=== PATIENT | male | born 1950 | race Caucasian/White ===

== ENCOUNTER → 2016-12-08 | Outpatient (CLI) | payer BC ==
[~2016-12-08] MED LIST: ASPEC81 PO; CIPR-255 PO; CLC100 PO; DTR5 PO; DUTA0.5C PO; LPR25 PO; METO25TA56 PO; MISCTAB29 PO; NAPR1TAB9 PO; ONDA4TAB65 PO; OXYC7.5T62 PO; ROSU20TA PO; SELE200C3 PO; VITA400C3 PO
[2016-12-08 10:57] LABS: BASO % 0.2 %; BASO ABS # 0.01 K/uL (0-0.2); COMPLETE YES; EOS % 0.7 %; HEMATOCRIT 44.4 % (42-52); LYMPH % 21.3 %; MEAN CELL VOLUME 85.5 fL (80-100); MEAN CORPUSCULAR HEMOGLOBIN 28.5 pg (25-34); MEAN CORPUSCULAR HGB CONC 33.3 g/dl (32-36); MEAN PLATELET VOLUME 10.2 fL (7.4-10.4); MONO % 6.7 %; NEUT % 71.1 %; PLATELET COUNT 347 K/uL (130-400); RED BLOOD COUNT 5.19 M/uL (4.7-6.1); WHITE BLOOD COUNT 5.63 K/uL (4.8-10.8)
[2016-12-08 11:18] LABS: BLOOD UREA NITROGEN 22 mg/dl (7-18); BUN/CREATININE RATIO 16.7 (10-20); CALCIUM 9.2 mg/dl (8.5-10.1); CARBON DIOXIDE 25 mmol/L (21-32); CHLORIDE 107 mmol/L (98-107); CHOLESTEROL 210 mg/dl (0-200); GLUCOSE 96 mg/dl (70-99); POTASSIUM 4.5 mmol/L (3.5-5.1); SODIUM 141 mmol/L (136-145); TRIGLYCERIDES 86 mg/dl (0-150); VERY LOW DENSITY LIPOPROT CALC 17 mg/dl
[2016-12-08 11:25] LABS: ALB/GLOB RATIO 0.9 (0.9-2); ALKALINE PHOSPHATASE 87 U/L (45-117); ALT/SGPT 22 U/L (12-78); AST/SGOT 16 U/L (15-37); CHOLESTEROL/HDL RATIO 3.2; HDL CHOLESTEROL 66 mg/dl; LDL CHOLESTEROL CALCULATED 127 mg/dl
[2016-12-08 16:36] LABS: LYME DISEASE AB IGG NEG (NEG); LYME DISEASE AB IGM NEG (NEG)
== END | disposition home or self-care (01) ==
LOC: C.LABBC 08:58
PROVIDERS: ATTEND Internal Medicine Geriatric Medicine
DX: Z12.5 Encounter for screening for malignant neoplasm of prostate (principal); Z00.00 Encounter for general adult medical examination without abnormal findings; W57.XXXA Bitten or stung by nonvenomous insect and other nonvenomous arthropods, initial encounter; T14.8 Other injury of unspecified body region

== ENCOUNTER → 2017-01-13 | Outpatient (CLI) | payer BC | END | disposition home or self-care (01) | LOC: C.LABBC 10:04 | PROVIDERS: ATTEND Internal Medicine Geriatric Medicine | DX: N41.9 Inflammatory disease of prostate, unspecified (principal) ==

== ENCOUNTER → 2017-02-12 | Outpatient (CLI) | payer BC ==
[2017-02-12 11:12] LABS: BLOOD UREA NITROGEN 21 mg/dl (7-18); BUN/CREATININE RATIO 15.8 (10-20)
== END | disposition home or self-care (01) ==
LOC: C.LABBC 08:08
PROVIDERS: ATTEND Urology
DX: R97.20 Elevated prostate specific antigen [PSA] (principal)

== ENCOUNTER 2017-02-20 18:28 | Emergency (ER) | payer BC ==
[~2017-02-20] VITALS: Ht 170.2 cm; Wt 69.3 kg
[2017-02-20 18:39] VITALS: O2SAT 97
--- NOTE | 2017-02-20 19:01 | EMERGENCY ROOM VISIT NOTE ---
History Report prepared by Divine: Jef Duckworth Under the Supervision of: Dr. Jack Kohli M.D. First contact with patient: 18:50 Chief Complaint: CARDIAC ASSESSMENT Stated Complaint: BACK PAIN, BLACKED OUT History of Present Illness The patient is a 66 year old male who presents to the Emergency Room with complaints of persistent upper back pain that started earlier today. The patient states that the pain radiates to the shoulders and is worse with breathing. The pain was severe. The patient also complains of a headache. The patient was cutting trees with his son earlier today when he had a blackout episode. He last remembers cutting limbs from a tree. The son notes that the patient nearly passed out and was staring blankly into space. His states that he was sweaty at that time. He never had an episode like this before. The patient did not fall and hit his head. He is not on blood thinners. He denies chest pain, leg pain or swelling, weakness, or numbness. He denies history of back problems, cardiac disease, or aortic problems. He does have a family history of heart disease. He is hypertensive. Source of History: patient, family Onset: today Position: back (upper) Symptom Intensity: severe Timing: other (persistent) Modifying Factors (Worsening): breathing Associated Symptoms: + LOC, + diaphoresis, + headache, No SOB, No numbness, No weakness Review of Systems See HPI for pertinent positives & negatives. A total of 10 systems reviewed and were otherwise negative. Past Medical & Surgical Medical Problems: (1) HTN (hypertension) (2) Hypertensive urgency Old medical records were reviewed. Nurse's notes were reviewed and I agree with. Family History FH: heart disease Social History Smoking Status: Never Smoker Housing Status: lives with family Current/Historical Medications Scheduled Misc Natural Products (Osteo Bi-Flex Advanced Tr), 1 TAB PO DAILY Selenium (Selenium), 200 MCG PO DAILY Vitamin E (Vitamin E 400 Iu), 400 INTER.UNIT PO DAILY Allergies Coded Allergies: No Known Allergies (Unverified , 02/20/17) Physical Exam Vital Signs Date Time Temp Pulse Resp B/P Pulse Ox O2 Delivery O2 Flow Rate FiO2 02/20/17 21:32 185/108 02/20/17 21:30 18 02/20/17 21:12 Room Air 02/20/17 21:00 82 16 179/123 02/20/17 20:30 71 17 167/113 02/20/17 20:00 74 15 160/112 02/20/17 19:30 74 18 153/98 02/20/17 19:02 97 02/20/17 19:00 79 22 142/97 02/20/17 18:49 88 02/20/17 18:39 36.6 86 16 177/115 97 Room Air Physical Exam General: Non ill appearing middle aged male in no acute distress, breathing comfortably on room air. Normal speech HEENT: Normal cephalic atraumatic. Pupils are equal round and reactive to light. Extraocular movements are intact. Oropharynx is pink with moist mucous membranes. No swelling of the mouth lips or tongue. Neck: Supple with a midline trachea. No meningeal signs or stiffness, no JVD or bruits. No Stridor. Chest: Clear to auscultation bilaterally. No wheezes or rhonchi. No increased work of breathing. Heart: regular rate and rhythm. Abdomen: Soft nontender, nondistended without rebound guarding or rigidity. Extremities: No cyanosis clubbing or edema. No calf tenderness or assymetry Spine/Back. Mild tenderness over thoracic spine. No CVA tenderness Skin: Good turgor without rashes. Neurologic exam: Cranial nerves two through 12 are intact. Motor and sensation are intact and symmetrical throughout. Medical Decision & Procedures ER Provider Diagnostic Interpretation: Radiology results as stated below per my review and radiologist interpretation: CT ANGIOGRAPHY THE CHEST WITHOUT AND WITH CONTRAST CLINICAL HISTORY: Chest and back pain. Possible dissection. COMPARISON STUDY: No previous studies for comparison. FINDINGS: Unenhanced images were obtained through the chest. The patient was then scanned in a dynamic helical fashion during intravenous administration 118 cc of Optiray 320. MIP imaging was performed. Unenhanced images reveal no evidence of acute aortic hematoma. No thyroid masses are visualized. There is no evidence of thoracic aortic dilatation. There is no evidence of thoracic aortic aneurysm. No pulmonary artery filling defects are visualized. There are no pathologically enlarged axillary, mediastinal, or hilar lymph nodes. No pleural effusions are visualized. There are dependent atelectatic changes. There is no lobar consolidation. There is a 3 mm solid left upper lobe pulmonary nodule as visualized in image #134/326. There is a 3 mm solid pleural-based nodule within the lingula as visualized in image #215/326. IMPRESSION: 1. No evidence of thoracic aortic aneurysm or dissection 2. No evidence of focal pulmonary consolidation 3. No evidence of pneumothorax 4. There are 2 solid left upper lobe pulmonary nodules, each of which measures 3 mm. Please refer to below summary of Fleischner criteria recommendations for follow-up of incidental CT nodules (Rocio Wilhelm, Guidelines for management of small pulmonary nodules detected on CT scans: A statement from the Fleischner Society, Radiology 237: [id number].) SOLID NODULES Solitary nodule size: <6 mm * low risk patients: no follow-up needed * high risk patients: optional CT at 12 months Solitary nodule size: 6-8 mm * low risk patients: follow-up at 6-12 months, then consider further follow-up at 18-24 months * high risk patients: initial follow-up CT at 6-12 months and then at 18-24 months if no change Solitary nodule size: >8 mm * either low or high risk patients - consider follow-up CT at 3 months, and/or CT-PET, and/or biopsy Multiple nodules size: <6 mm * low risk patients: no routine follow-up * high risk patients: optional CT at 12 months Multiple nodules size: 6-8 mm * low risk patients: follow-up at 3-6 months, then consider further follow-up at 18-24 months * high risk patients: follow-up at 3-6 months, then at 18-24 months if no change Multiple nodules size: >8 mm * low risk patients: follow-up at 3-6 months, then consider further follow-up at 18-24 months * high risk patients: follow-up at 3-6 months, then at 18-24 months if no change Note: newly detected indeterminate nodule in persons 35 years of age or older. * low risk patients: minimal or absent history of smoking and/or other known risk factors * high risk patients: history of smoking or of other known risk factors (e.g. first degree relative with lung cancer, or exposure to asbestos, radon, uranium) * if a nodule up to 8 mm is partly solid or is ground glass further follow-up is required after 24 months to exclude possible slow growing adenocarcinoma (RAMA) SUBSOLID NODULES Solitary pure ground-glass nodule * nodule size <6 mm - no CT follow-up required * nodule size >=6 mm - follow-up CT at 6-12 months, then every 2 years until 5 years Solitary part-solid nodule * nodule size <6 mm - no CT follow-up required * nodule size >=6 mm - follow-up CT at 3-6 months. If unchanged, and solid component remains <6 mm, then annual follow-up for 5 years Multiple subsolid nodules * nodule size <6 mm - follow-up CT at 3-6 months, consider further follow-up at 2 and 4 years if stable * nodule size >=6 mm - follow-up CT at 3-6 months, subsequent management based on the most suspicious nodule(s) Electronically signed by: Ritesh Magaña M.D. 02/20/2017 7:40 PM Dictated Date/Time: 02/20/2017 7:33 PM CHEST ONE VIEW PORTABLE CLINICAL HISTORY: Atypical chest pain COMPARISON STUDY: No previous studies for comparison. FINDINGS: The cardiac and mediastinal contours are normal. There is no evidence of focal pulmonary consolidation. There is no evidence of failure. No pleural effusions are visualized.[ IMPRESSION: No active disease in the chest. Electronically signed by: Ritesh Magaña M.D. 02/20/2017 7:44 PM Dictated Date/Time: 02/20/2017 7:44 PM Laboratory Results 02/20/17 18:50 Red Blood Count 4.96, Mean Corpuscular Volume 86.1, Mean Corpuscular Hemoglobin 28.6, Mean Corpuscular Hemoglobin Concent 33.3, Mean Platelet Volume 9.8, Neutrophils (%) (Auto) 80.5, Lymphocytes (%) (Auto) 12.5, Monocytes (%) (Auto) 6.3, Eosinophils (%) (Auto) 0.3, Basophils (%) (Auto) 0.2, Neutrophils # (Auto) 7.26, Lymphocytes # (Auto) 1.13, Monocytes # (Auto) 0.57, Eosinophils # (Auto) 0.03, Basophils # (Auto) 0.02 02/20/17 18:50 Test 02/20/17 18:50 02/20/17 18:54 02/20/17 18:55 02/20/17 18:57 White Blood Count 9.03 K/uL (4.8-10.8) Red Blood Count 4.96 M/uL (4.7-6.1) Hemoglobin 14.2 g/dL (14.0-18.0) Hematocrit 42.7 % (42-52) Mean Corpuscular Volume 86.1 fL (80-100) Mean Corpuscular Hemoglobin 28.6 pg (25-34) Mean Corpuscular Hemoglobin Concent 33.3 g/dl (32-36) Platelet Count 351 K/uL (130-400) Mean Platelet Volume 9.8 fL (7.4-10.4) Neutrophils (%) (Auto) 80.5 % Lymphocytes (%) (Auto) 12.5 % Monocytes (%) (Auto) 6.3 % Eosinophils (%) (Auto) 0.3 % Basophils (%) (Auto) 0.2 % Neutrophils # (Auto) 7.26 K/uL (1.4-6.5) Lymphocytes # (Auto) 1.13 K/uL (1.2-3.4) Monocytes # (Auto) 0.57 K/uL (0.11-0.59) Eosinophils # (Auto) 0.03 K/uL (0-0.5) Basophils # (Auto) 0.02 K/uL (0-0.2) RDW Standard Deviation 42.8 fL (36.4-46.3) RDW Coefficient of Variation 13.6 % (11.5-14.5) Immature Granulocyte % (Auto) 0.2 % Immature Granulocyte # (Auto) 0.02 K/uL (0.00-0.02) Prothrombin Time 10.5 SECONDS (9.0-12.0) Prothromb Time International Ratio 1.0 (0.9-1.1) Activated Partial Thromboplast Time 25.1 SECONDS (21.0-31.0) Partial Thromboplastin Ratio 1.0 Est Creatinine Clear Calc Drug Dose 43.0 ml/min Estimated GFR () 51.6 Estimated GFR (Non- 44.5 BUN/Creatinine Ratio 17.1 (10-20) Calcium Level 8.7 mg/dl (8.5-10.1) Total Bilirubin 0.2 mg/dl (0.2-1) Direct Bilirubin < 0.1 mg/dl (0-0.2) Aspartate Amino Transf (AST/SGOT) 14 U/L (15-37) Alanine Aminotransferase (ALT/SGPT) 22 U/L (12-78) Alkaline Phosphatase 92 U/L (45-117) Total Creatine Kinase 130 U/L (39-308) Creatine Kinase MB 2.2 ng/ml (0.5-3.6) Total Protein 7.7 gm/dl (6.4-8.2) Albumin 3.7 gm/dl (3.4-5.0) Lipase 337 U/L (73-393) Thyroid Stimulating Hormone (TSH) 3.130 uIu/ml (0.300-4.500) Bedside Troponin I 0.000 ng/ml (0-0.045) VD-Woq-D-Type Natriuretic Peptide 56 pg/ml (0-900) Bedside Hemoglobin 14.3 g/dl (14.0-18.0) Bedside Hematocrit 42 % (42-52) Bedside Sodium 143 mEq/L (135-144) Bedside Potassium 4.4 mEq/L (3.3-5.0) Bedside Chloride 107 mEq/L (101-112) Bedside Total CO2 25 mEq/l (24-31) Anion Gap 17.0 mmol/L (16-25) Bedside Blood Urea Nitrogen 28 mg/dl (7-18) Bedside Creatinine 1.4 mg/dl (0.6-1.3) Bedside Glucose (other) 105 mg/dl (70-99) Bedside Ionized Calcium (Dalila) 1.22 mmol/l (1.12-1.32) Creatine Kinase MB Ratio (0-3.0) Laboratory studies as stated above per my review. Medications Administered Medications (Trade) Dose Ordered Sig/Yudy Route Start Time Stop Time Status Last Admin Dose Admin Aspirin (Aspirin Chew) 324 mg NOW STAT PO 02/20/17 20:12 02/20/17 20:13 DC 02/20/17 20:20 324 MG ECG Indication: back/shoulder pain Rate (beats per minute): 78 Rhythm: normal sinus Findings: no acute ischemic change, no ectopy Comparison ECG Date: no prior available ED Course 1849: Past medical records reviewed. The patient was evaluated in room B6, and a complete history and physical examination were performed. 2012: Aspirin 324 mg PO. 2019: Discussed the case with Dr. Palacios, [facility]. The patient will be evaluated. 2024: Updated the patient and his . Medical Decision Differential diagnosis includes arrhythmia, acute coronary syndrome, aortic dissection, muscle spasm, PE, pneumothorax. This patient comes in as described above. He was placed in room B6. He is here for treatment and evaluation of a syncopal episode. He was in his usual state of health had just come down out of a tree there is no trauma he had severe back pain and got pale. He had no chest pain. He does not recall what happened. There is no seizure-like activity as family is not sure he went out completely but he said he was unresponsive. There is no trauma. He denies any chest pain and has minimal back pain at present. His blood pressure is high however the family says that he does tend to get anxious when he goes the doctor 's office. IV access was established multiple blood tests was obtained, EKG was obtained as well as chest x-ray. I did i-STAT labs his creatinine is acceptable to do a CAT scan and is not significant elevated. His cardiac markers are not elevated. CAT scan so shows no evidence of aortic dissection or pathology at this point. His EKG does not suggest acute coronary syndrome or arrhythmia. Given his presentation, I do think he needs a rule out for cardiac event such as arrhythmia or LA. I have consulted Dr. Morse who saw the patient ER will admit him for these measures. Consults Time Called: 2009 Consulting Physician: Dr. Palacios, [facility] Returned Call: 2019 2019: Discussed the case with Dr. Palacios, [facility]. The patient will be evaluated. Impression Primary Impression: Syncope Additional Impression: Back pain Scribe Attestation The scribe's documentation has been prepared under my direction and personally reviewed by me in its entirety. I confirm that the note above accurately reflects all work, treatment, procedures, and medical decision making performed by me. Departure Information Dispostion Being Evaluated By Hospitalist Referrals Otilio Holland D.O.Int.Med. (PCP) Patient Instructions My [facility] Problem Qualifiers
[2017-02-20 19:08] LABS: ISTAT CREATININE 1.4 mg/dl (0.6-1.3); ISTAT HEMOGLOBIN 14.3 g/dl (14.0-18.0); ISTAT IONIZED CALCIUM 1.22 mmol/l (1.12-1.32)
[2017-02-20] MEDS ORDERED: OPTIRAY 320 IV PRN (19:15)
[2017-02-20 19:18] LABS: BASO % 0.2 %; BASO ABS # 0.02 K/uL (0-0.2); COMPLETE YES; EOS % 0.3 %; HEMATOCRIT 42.7 % (42-52); IG% 0.2 %; LYMPH % 12.5 %; LYMPH ABS # 1.13 K/uL (1.2-3.4); MEAN CELL VOLUME 86.1 fL (80-100); MEAN CORPUSCULAR HEMOGLOBIN 28.6 pg (25-34); MEAN CORPUSCULAR HGB CONC 33.3 g/dl (32-36); MEAN PLATELET VOLUME 9.8 fL (7.4-10.4); MONO % 6.3 %; NEUT % 80.5 %; PLATELET COUNT 351 K/uL (130-400); RED BLOOD COUNT 4.96 M/uL (4.7-6.1); WHITE BLOOD COUNT 9.03 K/uL (4.8-10.8)
[2017-02-20 19:24] LABS: PROTHROMBIN TIME (PATIENT) 10.5 SECONDS (9.0-12.0)
[2017-02-20 19:26] LABS: BLOOD UREA NITROGEN 27 mg/dl (7-18); BUN/CREATININE RATIO 17.1 (10-20); CALCIUM 8.7 mg/dl (8.5-10.1); CARBON DIOXIDE 28 mmol/L (21-32); CHLORIDE 109 mmol/L (98-107); GLUCOSE 107 mg/dl (70-99); POTASSIUM 4.4 mmol/L (3.5-5.1); SODIUM 144 mmol/L (136-145)
[2017-02-20 19:38] LABS: ALKALINE PHOSPHATASE 92 U/L (45-117); ALT/SGPT 22 U/L (12-78); AST/SGOT 14 U/L (15-37); CKMB/CK RATIO 1.7 (0-3.0)
--- NOTE | 2017-02-20 19:43 | DIAGNOSTIC IMAGING REPORT ---
CT ANGIOGRAPHY THE CHEST WITHOUT AND WITH CONTRAST CLINICAL HISTORY: Chest and back pain. Possible dissection. COMPARISON STUDY: No previous studies for comparison. FINDINGS: Unenhanced images were obtained through the chest. The patient was then scanned in a dynamic helical fashion during intravenous administration 118 cc of Optiray 320. MIP imaging was performed. Unenhanced images reveal no evidence of acute aortic hematoma. No thyroid masses are visualized. There is no evidence of thoracic aortic dilatation. There is no evidence of thoracic aortic aneurysm. No pulmonary artery filling defects are visualized. There are no pathologically enlarged axillary, mediastinal, or hilar lymph nodes. No pleural effusions are visualized. There are dependent atelectatic changes. There is no lobar consolidation. There is a 3 mm solid left upper lobe pulmonary nodule as visualized in image #134/326. There is a 3 mm solid pleural-based nodule within the lingula as visualized in image #215/326. IMPRESSION: 1. No evidence of thoracic aortic aneurysm or dissection 2. No evidence of focal pulmonary consolidation 3. No evidence of pneumothorax 4. There are 2 solid left upper lobe pulmonary nodules, each of which measures 3 mm. Please refer to below summary of Fleischner criteria recommendations for follow-up of incidental CT nodules (Rocio Wilhelm, Guidelines for management of small pulmonary nodules detected on CT scans: A statement from the Fleischner Society, Radiology 237: [phone].) SOLID NODULES Solitary nodule size: <6 mm * low risk patients: no follow-up needed * high risk patients: optional CT at 12 months Solitary nodule size: 6-8 mm * low risk patients: follow-up at 6-12 months, then consider further follow-up at 18-24 months * high risk patients: initial follow-up CT at 6-12 months and then at 18-24 months if no change Solitary nodule size: >8 mm * either low or high risk patients - consider follow-up CT at 3 months, and/or CT-PET, and/or biopsy Multiple nodules size: <6 mm * low risk patients: no routine follow-up * high risk patients: optional CT at 12 months Multiple nodules size: 6-8 mm * low risk patients: follow-up at 3-6 months, then consider further follow-up at 18-24 months * high risk patients: follow-up at 3-6 months, then at 18-24 months if no change Multiple nodules size: >8 mm * low risk patients: follow-up at 3-6 months, then consider further follow-up at 18-24 months * high risk patients: follow-up at 3-6 months, then at 18-24 months if no change Note: newly detected indeterminate nodule in persons 35 years of age or older. * low risk patients: minimal or absent history of smoking and/or other known risk factors * high risk patients: history of smoking or of other known risk factors (e.g. first degree relative with lung cancer, or exposure to asbestos, radon, uranium) * if a nodule up to 8 mm is partly solid or is ground glass further follow-up is required after 24 months to exclude possible slow growing adenocarcinoma (RAMA) SUBSOLID NODULES Solitary pure ground-glass nodule * nodule size <6 mm - no CT follow-up required * nodule size >=6 mm - follow-up CT at 6-12 months, then every 2 years until 5 years Solitary part-solid nodule * nodule size <6 mm - no CT follow-up required * nodule size >=6 mm - follow-up CT at 3-6 months. If unchanged, and solid component remains <6 mm, then annual follow-up for 5 years Multiple subsolid nodules * nodule size <6 mm - follow-up CT at 3-6 months, consider further follow-up at 2 and 4 years if stable * nodule size >=6 mm - follow-up CT at 3-6 months, subsequent management based on the most suspicious nodule(s) Electronically signed by: Ritesh Magaña M.D. 02/20/2017 7:40 PM Dictated Date/Time: 02/20/2017 7:33 PM
--- NOTE | 2017-02-20 19:46 | DIAGNOSTIC IMAGING REPORT ---
CHEST ONE VIEW PORTABLE CLINICAL HISTORY: Atypical chest pain COMPARISON STUDY: No previous studies for comparison. FINDINGS: The cardiac and mediastinal contours are normal. There is no evidence of focal pulmonary consolidation. There is no evidence of failure. No pleural effusions are visualized.[ IMPRESSION: No active disease in the chest. Electronically signed by: Ritesh Magaña M.D. 02/20/2017 7:44 PM Dictated Date/Time: 02/20/2017 7:44 PM
[2017-02-20] MEDS ORDERED: ASPIRIN 81 MG CHEW PO STA (20:12)
[2017-02-20] MEDS ORDERED: SELE200C3 PO (20:54)
[2017-02-20] MEDS ORDERED: VITA400C3 PO (20:54)
[2017-02-20] MEDS ORDERED: MISCTAB29 PO (20:54)
[2017-02-20 21:12] VITALS: BP 177/107; PULSE 63; TEMP 36.7; Ht 170.2 cm; Wt 69.3 kg
[2017-02-20] MEDS ORDERED: NITROGLYCERIN 0.4 MG SL PER TAB CHARGE SL PRN (21:45)
[2017-02-20] MEDS ORDERED: ZOLPIDEM TARTRATE 5 MG TAB PO PRN (21:45)
[2017-02-20] MEDS ORDERED: ACETAMINOPHEN 325 MG TAB PO PRN (21:45)
[2017-02-20] MEDS ORDERED: ONDANSETRON INJ 2 MG/ML 2 ML VIAL IV PRN (21:45)
[2017-02-20] MEDS ORDERED: METOPROLOL TARTRATE 50 MG TAB PO STA (21:49)
[2017-02-20] MEDS ORDERED: METOPROLOL TARTRATE 50 MG TAB ONE (22:03)
--- NOTE | 2017-02-20 22:13 | History and Physical ---
History & Physical Date & Time of Service: Feb 20, 2017 at 22:13 Chief Complaint: Back Pain, Blacked Out Primary Care Physician: Otilio Holland D.O.Int.Med. History of Present Illness Source: patient, family The patient is a 66-year-old male presents emergency department with persistent severe upper back pain that radiates to the shoulders worse with taking a deep breath. The patient was cutting trees with his son earlier in the day, and when he climbed down a tree he leaned over and had almost a complete blackout episode that he only partially recalls. He was also noted to be sweaty at that time, and never had an episode like that before. He does have a family history of heart disease, and the patient himself is hypertensive. Past Medical/Surgical History Medical Problems: (1) HTN (hypertension) Status: Chronic Family History FH: heart disease Social History Smoking Status: Never Smoker Smokeless Tobacco Use: No Drug Use: none Marital Status: Housing status: lives with family Occupational Status: employed Multi-Drug Resistant Organisms History of MDRO: No Allergies Coded Allergies: No Known Allergies (Unverified , 02/20/17) Home Medications Scheduled [facility] Natural Products (Osteo Bi-Flex Advanced Tr), 1 TAB PO DAILY Selenium (Selenium), 200 MCG PO DAILY Vitamin E (Vitamin E 400 Iu), 400 INTER.UNIT PO DAILY Review of Systems The patient denies chest pain, palpitations, shortness of breath, cough, lower extremity swelling, vision change, hearing change, sore throat, fevers, chills, sweats, weight change, fatigue, nausea, vomiting, abdominal pain, pelvic pain, blood in urine or stool, dysuria, urinary frequency or urgency, rash, abnormal bruising or bleeding, imbalance, focal or generalized weakness, numbness or tingling in arms or legs, arthralgias or myalgias, back or neck pain, night sweats, or allergy symptoms. The review of systems is otherwise negative other than for that already noted above, and at least 10 systems have been reviewed. Physical Exam Vital Signs Date Time Temp Pulse Resp B/P Pulse Ox O2 Delivery O2 Flow Rate FiO2 02/20/17 21:12 Room Air 02/20/17 19:02 97 02/20/17 18:49 88 02/20/17 18:39 36.6 86 16 177/115 97 Room Air The patient is awake, well-developed and adequately nourished, alert and oriented 3, normocephalic and atraumatic, lying in bed and in no acute distress. HEENT--PERRL, EOMI, mucous membranes and oropharynx dry. Neck--supple, no JVD or bruits, thyroid normal, trachea midline, no adenopathy. Heart--normal S1 and S2, no extra beats, no murmurs, rubs or gallops. Lungs--clear bilaterally with good air movement, no respiratory distress, no accessory muscle use. Abdomen--normal bowel sounds and soft, nontender and nondistended, no hernias or masses, no organomegaly. Extremities--no cyanosis, clubbing or edema. There are good distal pulses b/l. Dermatologic--normal skin turgor, normal color, warm and dry, no abnormal lymph nodes, no rash. Neurologic--cranial nerves II through XII grossly intact, motor and sensory examination normal. Rheumatologic--normal range of motion, nontender, muscles and joints. Psychiatric--normal affect. Diagnostics Laboratory Results Results Past 24 Hours Test 02/20/17 18:50 02/20/17 18:54 02/20/17 18:55 02/20/17 18:57 Range/Units White Blood Count 9.03 4.8-10.8 K/uL Red Blood Count 4.96 4.7-6.1 M/uL Hemoglobin 14.2 14.0-18.0 g/dL Hematocrit 42.7 42-52 % Mean Corpuscular Volume 86.1 80-100 fL Mean Corpuscular Hemoglobin 28.6 25-34 pg Mean Corpuscular Hemoglobin Concent 33.3 32-36 g/dl Platelet Count 351 130-400 K/uL Mean Platelet Volume 9.8 7.4-10.4 fL Neutrophils (%) (Auto) 80.5 % Lymphocytes (%) (Auto) 12.5 % Monocytes (%) (Auto) 6.3 % Eosinophils (%) (Auto) 0.3 % Basophils (%) (Auto) 0.2 % Neutrophils # (Auto) 7.26 1.4-6.5 K/uL Lymphocytes # (Auto) 1.13 1.2-3.4 K/uL Monocytes # (Auto) 0.57 0.11-0.59 K/uL Eosinophils # (Auto) 0.03 0-0.5 K/uL Basophils # (Auto) 0.02 0-0.2 K/uL RDW Standard Deviation 42.8 36.4-46.3 fL RDW Coefficient of Variation 13.6 11.5-14.5 % Immature Granulocyte % (Auto) 0.2 % Immature Granulocyte # (Auto) 0.02 0.00-0.02 K/uL Prothrombin Time 10.5 9.0-12.0 SECONDS Prothromb Time International Ratio 1.0 0.9-1.1 Activated Partial Thromboplast Time 25.1 21.0-31.0 SECONDS Partial Thromboplastin Ratio 1.0 Sodium Level 144 136-145 mmol/L Potassium Level 4.4 3.5-5.1 mmol/L Chloride Level 109 98-107 mmol/L Carbon Dioxide Level 28 21-32 mmol/L Anion Gap 7.0 17.0 16-25 mmol/L Blood Urea Nitrogen 27 7-18 mg/dl Creatinine 1.60 0.60-1.40 mg/dl Est Creatinine Clear Calc Drug Dose 43.0 ml/min Estimated GFR () 51.6 Estimated GFR (Non- 44.5 BUN/Creatinine Ratio 17.1 10-20 Random Glucose 107 70-99 mg/dl Calcium Level 8.7 8.5-10.1 mg/dl Total Bilirubin 0.2 0.2-1 mg/dl Direct Bilirubin < 0.1 0-0.2 mg/dl Aspartate Amino Transf (AST/SGOT) 14 15-37 U/L Alanine Aminotransferase (ALT/SGPT) 22 12-78 U/L Alkaline Phosphatase 92 45-117 U/L Total Creatine Kinase 130 39-308 U/L Creatine Kinase MB 2.2 0.5-3.6 ng/ml Creatine Kinase MB Ratio 1.7 0-3.0 Total Protein 7.7 6.4-8.2 gm/dl Albumin 3.7 3.4-5.0 gm/dl Lipase 337 73-393 U/L Thyroid Stimulating Hormone (TSH) 3.130 0.300-4.500 uIu/ml Bedside Troponin I 0.000 0-0.045 ng/ml BA-Ttp-D-Type Natriuretic Peptide 56 0-900 pg/ml Bedside Hemoglobin 14.3 14.0-18.0 g/dl Bedside Hematocrit 42 42-52 % Bedside Sodium 143 135-144 mEq/L Bedside Potassium 4.4 3.3-5.0 mEq/L Bedside Chloride 107 101-112 mEq/L Bedside Total CO2 25 24-31 mEq/l Bedside Blood Urea Nitrogen 28 7-18 mg/dl Bedside Creatinine 1.4 0.6-1.3 mg/dl Bedside Glucose (other) 105 70-99 mg/dl Bedside Ionized Calcium (Dalila) 1.22 1.12-1.32 mmol/l Diagnostic Radiology Patient Name: NAVYA HARVEY Unit Number: [id number] Dictated: 02/20/171943 Transcribed: 02/20/171943 ARG Printed Date/Time: [~ rep prt dt]/[~ rep prt tm] [~ rep ct labl] - [~ rep ct ivnm] [facility] Radiology Department [place] [id number] Dictated: 02/20/171943 Transcribed: 02/20/171943 ARG Printed Date/Time: [~ rep prt dt]/[~ rep prt tm] [~ rep ct labl] - [~ rep ct ivnm] [~ rep ct add3]] CHEST ONE VIEW PORTABLE CLINICAL HISTORY: Atypical chest pain COMPARISON STUDY: No previous studies for comparison. FINDINGS: The cardiac and mediastinal contours are normal. There is no evidence of focal pulmonary consolidation. There is no evidence of failure. No pleural effusions are visualized.[ IMPRESSION: No active disease in the chest. Electronically signed by: Ritesh Magaña M.D. 02/20/2017 7:44 PM Dictated Date/Time: 02/20/2017 7:44 PM The status of this report is Signed. Draft = Not yet reviewed or approved by Radiologist. Signed = Reviewed and approved by Radiologist. <AttendingPhy></AttendingPhy> <FamilyPhy>Otilio Holland D.O.Int.Med.</ FamilyPhy> <PrimaryPhy>Otilio Holland D.O.Int.Med.</PrimaryPhy> <UnitNumber> [id number]</UnitNumber> <VisitNumber>[id number]</VisitNumber> <PatientName> NAVYA HARVEY</PatientName> <DateOfBirth>1950</DateOfBirth> < Location>[facility]</Location> <ServiceDate>02/20/17</ServiceDate> <MNE>ESINDI</MNE> <OrderingPhy>Jack Kohli M.D.</OrderingPhy> <OrderingPhyMNE>f rep ord dr tavares</OrderingPhyMNE> <DictatingPhyMNE>f rep dict dr tavares</DictatingPhyMNE> < CCListMNE>f rep ct mne</CCListMNE> <AdmittingPhyMNE>f pt admit dr tavares</ AdmittingPhyMNE> <AttendingPhyMNE>f pt attend dr tavares</AttendingPhyMNE> <ConsultingPhyMNE>f pt consult dr tavares</ConsultingPhyMNE> <FamilyPhyMNE>f pt fam dr tavares</FamilyPhyMNE> <OtherPhyMNE>f pt other dr tavares</OtherPhyMNE> < PrimaryPhyMNE>f pt prim care dr tavares</PrimaryPhyMNE> <ReferringPhyMNE>f pt referring dr tavares</ReferringPhyMNE> Patient Name: NAVYA HARVEY Unit Number: [id number] Dictated: 02/20/171932 Transcribed: 02/20/171932 ARG Printed Date/Time: [~ rep prt dt]/[~ rep prt tm] [~ rep ct labl] - [~ rep ct ivnm] [facility] [place] [address] Dictated: 02/20/171932 Transcribed: 02/20/171932 ARG Printed Date/Time: [~ rep prt dt]/[~ rep prt tm] [~ rep ct labl] - [~ rep ct ivnm] [~ rep ct add3]] CT ANGIOGRAPHY THE CHEST WITHOUT AND WITH CONTRAST CLINICAL HISTORY: Chest and back pain. Possible dissection. COMPARISON STUDY: No previous studies for comparison. FINDINGS: Unenhanced images were obtained through the chest. The patient was then scanned in a dynamic helical fashion during intravenous administration 118 cc of Optiray 320. MIP imaging was performed. Unenhanced images reveal no evidence of acute aortic hematoma. No thyroid masses are visualized. There is no evidence of thoracic aortic dilatation. There is no evidence of thoracic aortic aneurysm. No pulmonary artery filling defects are visualized. There are no pathologically enlarged axillary, mediastinal, or hilar lymph nodes. No pleural effusions are visualized. There are dependent atelectatic changes. There is no lobar consolidation. There is a 3 mm solid left upper lobe pulmonary nodule as visualized in image #134/326. There is a 3 mm solid pleural-based nodule within the lingula as visualized in image #215/326. IMPRESSION: 1. No evidence of thoracic aortic aneurysm or dissection 2. No evidence of focal pulmonary consolidation 3. No evidence of pneumothorax 4. There are 2 solid left upper lobe pulmonary nodules, each of which measures 3 mm. Please refer to below summary of Fleischner criteria recommendations for follow-up of incidental CT nodules (oRcio Wilhelm, Guidelines for management of small pulmonary nodules detected on CT scans: A statement from the Fleischner Society, Radiology 237: [phone].) SOLID NODULES Solitary nodule size: <6 mm * low risk patients: no follow-up needed * high risk patients: optional CT at 12 months Solitary nodule size: 6-8 mm * low risk patients: follow-up at 6-12 months, then consider further follow-up at 18-24 months * high risk patients: initial follow-up CT at 6-12 months and then at 18-24 months if no change Solitary nodule size: >8 mm * either low or high risk patients - consider follow-up CT at 3 months, and/or CT-PET, and/or biopsy Multiple nodules size: <6 mm * low risk patients: no routine follow-up * high risk patients: optional CT at 12 months Multiple nodules size: 6-8 mm * low risk patients: follow-up at 3-6 months, then consider further follow-up at 18-24 months * high risk patients: follow-up at 3-6 months, then at 18-24 months if no change Multiple nodules size: >8 mm * low risk patients: follow-up at 3-6 months, then consider further follow-up at 18-24 months * high risk patients: follow-up at 3-6 months, then at 18-24 months if no change Note: newly detected indeterminate nodule in persons 35 years of age or older. * low risk patients: minimal or absent history of smoking and/or other known risk factors * high risk patients: history of smoking or of other known risk factors (e.g. first degree relative with lung cancer, or exposure to asbestos, radon, uranium) * if a nodule up to 8 mm is partly solid or is ground glass further follow-up is required after 24 months to exclude possible slow growing adenocarcinoma (RAMA) SUBSOLID NODULES Solitary pure ground-glass nodule * nodule size <6 mm - no CT follow-up required * nodule size >=6 mm - follow-up CT at 6-12 months, then every 2 years until 5 years Solitary part-solid nodule * nodule size <6 mm - no CT follow-up required * nodule size >=6 mm - follow-up CT at 3-6 months. If unchanged, and solid component remains <6 mm, then annual follow-up for 5 years Multiple subsolid nodules * nodule size <6 mm - follow-up CT at 3-6 months, consider further follow-up at 2 and 4 years if stable * nodule size >=6 mm - follow-up CT at 3-6 months, subsequent management based on the most suspicious nodule(s) Electronically signed by: Ritesh Magaña M.D. 02/20/2017 7:40 PM Dictated Date/Time: 02/20/2017 7:33 PM The status of this report is Signed. Draft = Not yet reviewed or approved by Radiologist. Signed = Reviewed and approved by Radiologist. <AttendingPhy></AttendingPhy> <FamilyPhy>Otilio Holland D.O.Int.Med.</ FamilyPhy> <PrimaryPhy>Otilio Holland D.O.Int.Med.</PrimaryPhy> <UnitNumber> [id number]</UnitNumber> <VisitNumber>[id number]</VisitNumber> <PatientName> CANDICENAVYAMER</PatientName> <DateOfBirth>1950</DateOfBirth> < Location>[facility]</Location> <ServiceDate>02/20/17</ServiceDate> <MNE>ESINDI</MNE> <OrderingPhy>Jack Kohli M.D.</OrderingPhy> <OrderingPhyMNE>f rep ord dr tavares</OrderingPhyMNE> <DictatingPhyMNE>f rep dict dr tavares</DictatingPhyMNE> < CCListMNE>f rep ct mne</CCListMNE> <AdmittingPhyMNE>f pt admit dr tavares</ AdmittingPhyMNE> <AttendingPhyMNE>f pt attend dr tavares</AttendingPhyMNE> <ConsultingPhyMNE>f pt consult dr tavares</ConsultingPhyMNE> <FamilyPhyMNE>f pt fam dr tavares</FamilyPhyMNE> <OtherPhyMNE>f pt other dr tavares</OtherPhyMNE> < PrimaryPhyMNE>f pt prim care dr tavares</PrimaryPhyMNE> <ReferringPhyMNE>f pt referring dr tavares</ReferringPhyMNE> EKG EKG shows normal sinus rhythm at 78 bpm, there are no acute ST-T changes. Impression Assessment and Plan Near syncope/hypertensive urgency--the patient will be admitted to the telemetry unit for serial cardiac enzymes, cardiac rhythm monitoring and a 2-D echocardiogram with Dopplers. We'll order an MRI the brain combo, MRA of the neck combo, an MRA of the head without contrast. For now we will allow permissive hypertension until determination is made as to whether the patient is a stroke. At this point in time and emergency department, the patient reports that he feels normal. He'll be given aspirin 324 mg by mouth daily, 81 mg by mouth every morning. We'll check a fasting profile in the a.m. and will start statin withdrawal is elevated. Renal insufficiency--creatinine 1.6, with a baseline of 1.3. We'll encourage fluid intake, and we'll repeat laboratories in the a.m. Level of Care Telemetry Advanced Directives Existing Advance Directive: No Existing Living Will: No Existing Power of Skiver Box Toe: No Resuscitation Status FULL RESUSCITATION VTE Prophylaxis VTE Risk Assessment Done? Y/N: Yes Risk Level: Moderate Given or contraindicated: SCD's
[2017-02-20] MEDS ORDERED: IV FLUIDS COMPLETED PRN (22:30)
--- NOTE | 2017-02-20 22:44 | DIAGNOSTIC IMAGING REPORT ---
MR ANGIOGRAPHY OF THE [place] OF [place] NO CONTRAST CLINICAL HISTORY: SYNCOPE COMPARISON STUDY: None. A 3-D [id number] MR angiographic sequence of the hoh of S[place] was performed. Both the source and projection images were reviewed. There is no evidence of major intracranial branch occlusion. There is no evidence of intracranial stenosis. There are no lesions suspicious for aneurysm. IMPRESSION: Unremarkable MR angiography of the hoh of Sood. Electronically signed by: Ritesh Magaña M.D. 02/20/2017 10:42 PM Dictated Date/Time: 02/20/2017 10:41 PM
[2017-02-20 23:40] VITALS: BP 177/107; PULSE 63; TEMP 36.7; O2SAT 97
[2017-02-21] VITALS (9 sets, daily range): BP systolic 120–170; BP diastolic 76–104; PULSE 60–77; TEMP 36.5–36.7; O2SAT 97–98
[2017-02-21] MEDS ORDERED: NURSING VERBAL MED ORDER ONE (04:15)
[2017-02-21] MEDS ORDERED: HydrALAZINE HCL 20 MG/ML VIAL IV. PRN (04:30)
[2017-02-21 06:24] LABS: BASO % 0.2 %; BASO ABS # 0.01 K/uL (0-0.2); COMPLETE YES; EOS % 1.1 %; HEMATOCRIT 41.8 % (42-52); IG% 0.2 %; LYMPH % 22.1 %; LYMPH ABS # 1.17 K/uL (1.2-3.4); MEAN CELL VOLUME 86.4 fL (80-100); MEAN CORPUSCULAR HGB CONC 34.7 g/dl (32-36); MEAN PLATELET VOLUME 9.9 fL (7.4-10.4); MONO % 9.5 %; NEUT % 66.9 %; PLATELET COUNT 315 K/uL (130-400); RED BLOOD COUNT 4.84 M/uL (4.7-6.1); WHITE BLOOD COUNT 5.29 K/uL (4.8-10.8)
[2017-02-21 06:34] LABS: PARTIAL THROMBOPLASTIN RATIO 1.1
[2017-02-21 06:56] LABS: CALCIUM 8.5 mg/dl (8.5-10.1); CREATININE 1.3 mg/dl (0.60-1.40); MAGNESIUM 2.3 mg/dl (1.8-2.4); POTASSIUM 3.8 mmol/L (3.5-5.1)
[2017-02-21 07:01] LABS: CKMB/CK RATIO 1.1 (0-3.0)
--- NOTE | 2017-02-21 07:52 | DIAGNOSTIC IMAGING REPORT ---
Brain MRI WITH AND WITHOUT CONTRAST HISTORY: SYNCOPE TECHNIQUE: Multiplanar multisequence MRI of the brain was performed both before and after the intravenous administration of contrast. COMPARISON STUDY: None. FINDINGS: There is no mass, hematoma, midline shift, or acute infarct. Trace fluid within the left maxillary sinus. The mastoid air cells are clear. The ventricles and sulci are within normal limits. Scattered foci of T2 hyperintensity seen within the periventricular and subcortical white matter are nonspecific but suggestive of mild microvascular ischemic changes. The major vascular flow voids at the skull base are well-maintained. IMPRESSION: No acute intracranial abnormality. Scattered foci of T2 hyperintensity seen within the periventricular and subcortical white matter are nonspecific but favor microvascular ischemic change. Trace fluid within the left maxillary sinus. Electronically signed by: Ej Cazares M.D. 02/21/2017 7:49 AM Dictated Date/Time: 02/21/2017 7:42 AM
--- NOTE | 2017-02-21 07:56 | DIAGNOSTIC IMAGING REPORT ---
NECK MRA HISTORY: SYNCOPE TECHNIQUE: Offh-hn-vibrcf and gadolinium-enhanced MRA of the neck was performed both before and after the intravenous administration of contrast. All measurements were calculated based on NASCET criteria. COMPARISON STUDY: None. FINDINGS: The aortic arch and proximal great vessels are widely patent. Focal high-grade stenosis of 80-90% within the distal right internal carotid artery as it enters the skull base. Otherwise, the remaining bilateral common carotid and left internal carotid arteries are patent. No significant stenosis within the vertebral arteries. IMPRESSION: Focal high-grade stenosis within the distal right internal carotid artery as it enters the skull base. Otherwise, the remaining bilateral common carotid, left internal carotid, and vertebral arteries are patent. Electronically signed by: Ej Cazares M.D. 02/21/2017 7:54 AM Dictated Date/Time: 02/21/2017 7:50 AM
[2017-02-21] MEDS ORDERED: TOCOPHERYL, DL-ALPHA 400 INTER.UNIT CAP PO SCH (09:00)
[2017-02-21] MEDS ORDERED: ASPIRIN 81 MG ECTAB PO SCH (09:00)
[2017-02-21] MEDS ORDERED: NON-FORMULARY MEDICATION (Selenium 200 MCG) PO SCH (09:00)
[2017-02-21] MEDS ORDERED: METOPROLOL TARTRATE 25 MG TAB PO SCH (09:00)
[2017-02-21] MEDS ORDERED: NON-FORMULARY MEDICATION (Misc Natural Products (Osteo Bi-Flex Advanced Tr) 1 TAB) PO SCH (09:00)
--- NOTE | 2017-02-21 12:47 | ECHOCARDIOGRAM REPORT ---
*NOTICE TO RECEIVING REPUBLICAN AGENCY This information is strictly Confidential and protected under [place] law. [place] law prohibits you from making any further disclosure of this information unless further disclosure is expressly permitted by the written consent of the person to whom it pertains or is authorized by law. A general authorization for the release of medical or other information is not sufficient for this purpose. Hospital accepts no responsibility if the information is made available to any other person, INCLUDING THE PATIENT. Interpretation Summary * Name: NAVYA HARVEY Study Date: 02/21/2017 11:05 AM BP: 156/80 mmHg * Patient Location: [facility]\S\N282\S\2 HR: 71 * : 1950 (M/d/yyyy) Gender: Male Height: 67 in * Age: 66 yrs Ethnicity: [place] Weight: 156 lb * Ordering Physician: Jagdeep Palacios * Referring Physician: Self, Referred * Performed By: John Rose RDCS * * Reason For Study: Near syncope * BSA: 1.8 m2 * -- Conclusions -- * 1. Normal LV size. Borderline concentric LVH. * 2. Normal LV systolic function. LVEF 60-65%. No regional wall motion abnormalities. * 3. Normal RV size and function. * 4. No significant valvular pathology. * 5. Normal estimated RA and PA pressure. * 6. No prior study for comparison. Procedure Details * A complete two-dimensional transthoracic echocardiogram was performed (2D, M-mode, Doppler and color flow Doppler). * The study was technically adequate. Left Ventricle * The left ventricle is grossly normal size. * There is borderline concentric left ventricular hypertrophy. * Ejection Fraction = 60-65%. * No regional wall motion abnormalities noted. Right Ventricle * The right ventricle is grossly normal size. * The right ventricular systolic function is normal as assessed by tricuspid annular plane systolic excursion (TAPSE) (normal >1.5 cm). Atria * The left atrial size is normal. * Right atrial size is normal. * No ASD detected; PFO is not assessed. Mitral Valve * The mitral valve is grossly normal. * There is no mitral valve stenosis. * Significant mitral regurgitation is absent. Tricuspid Valve * The tricuspid valve is not well visualized, but is grossly normal. * There is no tricuspid stenosis. * There is trace tricuspid regurgitation. Aortic Valve * The aortic valve opens well. * The aortic valve is trileaflet. * No hemodynamically significant valvular aortic stenosis. * There is no significant aortic regurgitation. Pulmonic Valve * The pulmonary valve is not well seen, but the Doppler examination is normal without significant regurgitation or stenosis. Great Vessels * The aortic root and proximal ascending aorta are normal sized. Pericardium/Pleural * There is no pericardial effusion. Great Vessels * Normal inferior vena cava size and collapsability with sniff indicates a normal right atrial pressure of 3 mmHg * There is no evidence of pulmonary hypertension. The PA systolic pressure is less than 36 mmHg. MMode 2D Measurements and Calculations IVSd 1.1 cm IVSs 1.6 cm LVIDd 4.4 cm LVIDs 2.8 cm LVPWd 1.1 cm LVPWs 1.6 cm IVS/LVPW 1.1 FS 36.5 % EDV(Teich) 86.6 ml ESV(Teich) 29.0 ml EF(Teich) 66.5 % EDV(cubed) 83.8 ml ESV(cubed) 21.4 ml EF(cubed) 74.4 % % IVS thick 40.7 % % LVPW thick 51.6 % LV mass(C)d 167.3 grams LV mass(C)dI 92.0 grams/m\S\2 LV mass(C)s 161.2 grams LV mass(C)sI 88.6 grams/m\S\2 SV(Teich) 57.6 ml SI(Teich) 31.7 ml/m\S\2 SV(cubed) 62.4 ml SI(cubed) 34.3 ml/m\S\2 EPSS 0.57 cm Ao root diam 2.9 cm Ao root area 6.4 cm\S\2 ACS 1.8 cm LA dimension 3.5 cm asc Aorta Diam 3.1 cm LA/Ao 1.2 LVOT diam 2.0 cm LVOT area 3.2 cm\S\2 LVAd ap4 23.1 cm\S\2 LVLd ap4 7.9 cm EDV(MOD-sp4) 57.0 ml LVAs ap4 11.3 cm\S\2 LVLs ap4 6.1 cm ESV(MOD-sp4) 18.0 ml EF(MOD-sp4) 68.4 % LVAd ap2 23.8 cm\S\2 LVLd ap2 8.1 cm EDV(MOD-sp2) 59.0 ml LVAs ap2 12.5 cm\S\2 LVLs ap2 6.9 cm ESV(MOD-sp2) 20.0 ml EF(MOD-sp2) 66.1 % SV(MOD-sp4) 39.0 ml SI(MOD-sp4) 21.4 ml/m\S\2 SV(MOD-sp2) 39.0 ml SI(MOD-sp2) 21.4 ml/m\S\2 Doppler Measurements and Calculations MV E max gume 73.5 cm/sec MV A max gume 80.9 cm/sec MV E/A 0.91 MV dec time 0.20 sec Ao V2 max 168.3 cm/sec Ao max PG 11.3 mmHg Ao max PG (full) 7.4 mmHg RAHAT(V,A) 1.9 cm\S\2 RAHAT(V,D) 1.9 cm\S\2 LV V1 max PG 3.9 mmHg LV V1 max 99.3 cm/sec PA V2 max 110.1 cm/sec PA max PG 4.9 mmHg
--- NOTE | 2017-02-21 13:12 | CARDIOLOGY CONSULTATION ---
DATE OF CONSULTATION: 02/21/2017 REASON FOR CONSULTATION: Syncope. CONSULTATION REQUESTED BY: Dr. Palacios. PRIMARY CARE PHYSICIAN: Dr. Holland. HISTORY OF PRESENT ILLNESS: Mr. Alegre is a 66-year-old man with a history of hypertension, BPH status post prior resection and recently diagnosed elevated PSA, who was admitted yesterday after a syncopal event. The patient states that he was out up in a tree doing heavy strenuous labor when while coming down from the tree, reached the ground and blacked out. Per family report, the patient fell to his knees and was out for approximately 30 seconds before regaining consciousness. Prior to this, the patient denied any preceding chest pain, palpitations, shortness of breath. He states that recently he has been in his usual state of health, denies any recent illness, decreased p.o. intake or other new symptoms. After this event the patient did report some back pain radiating up to his neck and as a result he presented to the Emergency Department. There was initially hypertensive with systolic blood pressures up into the 170s/100s. He was treated with p.o. metoprolol and IV hydralazine with improved blood pressure control. He underwent evaluation, which included a normal EKG, negative cardiac enzymes. A CTA of his chest which showed no evidence of dissection and no gross evidence of pulmonary embolism and MRI/MRA of his head and neck which showed no acute stroke, no intracranial vascular disease and a severe estimated 80%-90% focal stenosis in the distal right internal carotid artery. He was monitored on telemetry overnight, has had no events. This morning he feels in his usual state of health and denies any presyncopal symptoms or chest pain. PAST MEDICAL HISTORY: 1. Hypertension. 2. BPH status post TUNA procedure. 3. Recently diagnosed elevated PSA. FAMILY HISTORY: Mother had valvular heart disease and underwent a valve surgery and bypass surgery in her early 60s. Father had an NV in his 60s "from overwork." SOCIAL HISTORY: Is retired. 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 He is . Denies tobacco or alcohol use or illicit drugs. ALLERGIES: No known drug allergies. HOME MEDICATIONS: Include selenium and vitamin E and a natural product [place]ia Bi-Flex Advanced. INPATIENT MEDICATIONS: Include aspirin 81, metoprolol 25 mg p.o. b.i.d. and p.r.n. medications. REVIEW OF SYSTEMS: Ten point review of systems was completed and otherwise negative unless stated in HPI. PHYSICAL EXAMINATION: VITAL SIGNS: Temperature 36.7, pulse 71, blood pressure 129/80, satting 97% on room air. GENERAL: The patient appears comfortable in no acute distress. HEENT: Sclerae are anicteric. Oropharynx is clear. Mucous membranes are moist. NECK: Supple with no lymphadenopathy. LUNGS: Clear to auscultation bilaterally. HEART: Shows a regular rate and rhythm with no murmurs, rubs or gallops. ABDOMEN: Soft, nontender, nondistended with positive bowel sounds. EXTREMITIES: Warm. He has no significant lower extremity edema. He has intact distal pulses. SKIN: Shows no rashes or lesions. NEUROLOGIC: Nonfocal. PSYCHIATRIC: Alert and oriented x3 and mood and affect are appropriate. LABORATORY DATA: White blood cell count 5.3, hemoglobin 14.5, platelets of 315. INR of 1.0. Sodium of 142, potassium 3.8, BUN of 22, creatinine of 1.3, down from 1.6 on presentation. CK-MB negative. Troponins, point of care troponin was negative, subsequent troponin this morning of 0.04. ProBNP 56. EKG shows normal sinus rhythm at a ventricular rate of 78. IMAGING: Brain MRI shows no acute intracranial abnormality. MRA of the head and neck remarkable for focal high grade stenosis, 80%-90% in distal right internal carotid artery, otherwise, no significant lesions. CTA of the chest shows no evidence of thoracic aortic aneurysm or dissection, no focal pulmonary consolidation, no pneumothorax, 2 solid left pulmonary nodules each which measures 3 mm. IMPRESSION AND PLAN: 1. Hypertension. 2. Syncope. 3. Carotid artery disease. 4. Mild acute renal insufficiency. PLAN: Patient here with a syncopal episode in the setting of new hypertension and back pain. Acute dissection, ACS, lung processes have been ruled out by initial evaluation, and no acute neurologic processes on neuroimaging. Suspicion for ACS is relatively low, but in the setting of exertional syncope and cardiac risk factors including hypertension, family history and newly diagnosed vascular disease involving his carotid, feel that stress test is warranted at some point. We will see if can be completed today, otherwise, could be done tomorrow morning or if need be, as an outpatient. In the interim, I agree with continued management with beta-berna, aspirin. With vascular disease would plan to start on high intensity statin. In regards to his carotid artery disease, recommend outpatient followup for consideration of further evaluation versus referral for endarterectomy. We will continue to follow while in the hospital. Thank you for allowing us to participate in the care of this patient. Please contact with any questions. JUMANA
[2017-02-21] MEDS ORDERED: LPR25 PO (13:24)
[2017-02-21] MEDS ORDERED: ASPEC81 PO (13:24)
[2017-02-21] MEDS ORDERED: ROSU20TA PO (13:24)
--- NOTE | 2017-02-21 13:27 | Discharge Instructions ---
Discharge Instructions Date of Service Feb 21, 2017. Admission Reason for Admission: Hypertensive Urgency Discharge Discharge Diagnosis / Problem: syncope Discharge Goals Goal(s): Improve function Activity Recommendations Activity Limitations: resume your previous activity . Instructions / Follow-Up Instructions / Follow-Up Cardiology as directed for stress Test Primary Care Physician Carotid stenosis adalgisa and [facility]ney Current Hospital Diet Patient's current hospital diet: AHA Diet (Heart Healthy) Discharge Diet Recommended Diet: AHA Diet (Heart Healthy) Pending Studies Studies pending at discharge: no Laboratory Results Lipid Panel Test 12/08/16 09:02 Range/Units Triglycerides Level 86 0-150 mg/dl Cholesterol Level 210 H 0-200 mg/dl HDL Cholesterol 66 mg/dl Cholesterol/HDL Ratio 3.2 LDL Cholesterol, Calculated 127 mg/dl Medical Emergencies . Who to Call and When: Medical Emergencies: If at any time you feel your situation is an emergency, please call 911 immediately. . Non-Emergent Contact Non-Emergency issues call your: Primary Care Provider . . "Provider Documentation" section prepared by Jack Kasper. . VTE Core Measure Inpt VTE Proph given/why not?: SCD's
--- NOTE | 2017-02-23 19:50 | DISCHARGE SUMMARY ---
Please see dictated H\T\P for full details of presentation. HISTORY OF PRESENT ILLNESS: The patient is a 66-year-old who presented with severe upper back pain that radiated to his shoulders, worse with taking a deep breath. He was cutting trees and climbed down a tree. He leaned over and almost had a complete blackout episode that he only recalls partially. He also was sweaty at that time and never had an episode like that. FAMILY HISTORY: Heart disease in their 70s and he came in for evaluation. CAT scan of the chest with and without contrast revealed no evidence of thoracic aortic aneurysm or dissection. No evidence of focal pulmonary consolidation. No evidence of pneumothorax. There were 2 solid left upper lobe pulmonary nodules, each of which measures 3 mm. The patient knew about those and was following those as an outpatient. The patient was seen in consultation by cardiology, Dr. Ang. He also had an MRI of the brain, MRI of the head and neck which was remarkable for a focal high-grade stenosis 80-98% in the distal right internal carotid artery, otherwise no significant lesions. Cardiology recommended beta berna and aspirin and recommended outpatient followup for consideration of further evaluation or referral for endarterectomy. The patient was told the results of his studies and asked to follow up with his primary care doctor in a week and to pursue outpatient stress testing also. Time spent in review of the chart, discussion with the patient on date of discharge is 31 minutes on 02/21. DISCHARGE DIAGNOSES: 1. Syncope. 2. Right carotid stenosis. 3. Pulmonary nodules. MTDD
[2017-06-09] MEDS ORDERED: METO25TA56 PO (15:02)
[2017-06-09] MEDS ORDERED: DUTA0.5C PO (15:02)
[2017-06-09] MEDS ORDERED: ROSU20TA PO (15:02)
[2017-06-09] MEDS ORDERED: NAPR1TAB9 PO (15:03)
[2017-06-25] MEDS ORDERED: CLC100 PO (08:30)
[2017-06-25] MEDS ORDERED: CIPR-255 PO (08:30)
[2017-06-25] MEDS ORDERED: DTR5 PO (08:30)
== END 2017-02-21 14:45 | disposition home or self-care (01) ==
LOC: ENRESERVDT → ENRESERVTM → C.EDB 18:29 → C.MED 21:43
PROVIDERS: ADMIT Hospitalist; ATTEND Hospitalist
DX: R55 Syncope and collapse (principal); I65.21 Occlusion and stenosis of right carotid artery; R91.1 Solitary pulmonary nodule; N28.9 Disorder of kidney and ureter, unspecified; I10 Essential (primary) hypertension; Z98.890 Other specified postprocedural states; Z79.82 Long term (current) use of aspirin; Z82.49 Family history of ischemic heart disease and other diseases of the circulatory system

== ENCOUNTER → 2017-04-01 | Outpatient (CLI) | payer BC ==
[2017-04-01 17:11] LABS: BLOOD UREA NITROGEN 24 mg/dl (7-18)
== END | disposition home or self-care (01) ==
LOC: C.LABBC 14:14
PROVIDERS: ATTEND Physician Assistant Medical
DX: Z00.00 Encounter for general adult medical examination without abnormal findings (principal)

== ENCOUNTER → 2017-04-22 | Outpatient (CLI) | payer BC | END | disposition home or self-care (01) | LOC: C.PATHSPEC 18:01 | PROVIDERS: ATTEND Urology | DX: C61 Malignant neoplasm of prostate (principal); R97.20 Elevated prostate specific antigen [PSA] ==

== ENCOUNTER → 2017-05-11 | Outpatient (CLI) | payer BC ==
--- NOTE | 2017-05-11 13:49 | DIAGNOSTIC IMAGING REPORT ---
WHOLE-BODY NUCLEAR BONE SCAN CLINICAL HISTORY: Prostate cancer. COMPARISON STUDY: Chest CT dated 02/20/2017. TECHNIQUE: Three hours following the IV administration of 26.9 mCi of technetium 99m MDP, whole body nuclear bone scan was performed in the anterior and posterior projections. FINDINGS: There is no abnormal osseous tracer deposition identified typical in appearance for bony metastatic disease. Typically degenerative low-level uptake is identified in the shoulders, sternoclavicular joints, ankles, and feet. There is expected excreted activity within the renal collecting system and bladder. IMPRESSION: There is no scintigraphic evidence of bony metastatic disease. Electronically signed by: Daniel Escoto M.D. 05/11/2017 1:47 PM Dictated Date/Time: 05/11/2017 1:46 PM
== END | disposition home or self-care (01) ==
LOC: C.NUCL 09:29
PROVIDERS: ATTEND Urology
DX: C61 Malignant neoplasm of prostate (principal)

== ENCOUNTER → 2017-06-09 | Outpatient (CLI) | payer BC ==
[2017-06-09 16:30] LABS: ALKALINE PHOSPHATASE 88 U/L (45-117); ALT/SGPT 24 U/L (12-78); AST/SGOT 19 U/L (15-37); CHOLESTEROL 124 mg/dl (0-200); CHOLESTEROL/HDL RATIO 2.3; HDL CHOLESTEROL 53 mg/dl; LDL CHOLESTEROL CALCULATED 52 mg/dl; TRIGLYCERIDES 94 mg/dl (0-150); VERY LOW DENSITY LIPOPROT CALC 19 mg/dl
== END | disposition home or self-care (01) ==
LOC: C.LAB 15:46
PROVIDERS: ATTEND Physician Assistant
DX: I65.29 Occlusion and stenosis of unspecified carotid artery (principal)

== ENCOUNTER 2017-06-24 05:23 | Inpatient (IN) | payer BC, OTHER ==
[2017-06-09 15:03] VITALS: BMI 25.0
--- NOTE | 2017-06-09 15:30 | PAT Medication Instructions ---
Service Date Jun 09, 2017. Current Home Medication List Dutasteride (Avodart), 0.5 MG PO QPM Metoprolol Tartrate (Lopressor) (Lopressor), 25 MG PO BID Misc Natural Products (Osteo Bi-Flex Advanced Tr), 1 TAB PO QPM Naproxen (Aleve), 220 MG PO PRN Rosuvastatin Calcium (Crestor), 20 MG PO QPM Selenium (Selenium), 200 MCG PO QPM Vitamin E (Vitamin E 400 Iu), 400 INTER.UNIT PO QPM Medication Instructions For Your Scheduled Surgery - Hold the following medications 2 weeks prior to surgery: Vitamin E (Vitamin E 400 Iu), 400 INTER.UNIT PO QPM Selenium (Selenium), 200 MCG PO QPM Misc Natural Products (Osteo Bi-Flex Advanced Tr), 1 TAB PO QPM - Hold the following medications the morning of surgery: Naproxen (Aleve), 220 MG PO PRN (otherwise okay to continue per surgeon) - Take the following medications the morning of surgery with a sip of water OTHERWISE NOTHING TO EAT OR DRINK AFTER MIDNIGHT: Metoprolol Tartrate (Lopressor) (Lopressor), 25 MG PO BID - Take the following medications as scheduled the night before surgery: Metoprolol Tartrate (Lopressor) (Lopressor), 25 MG PO BID Dutasteride (Avodart), 0.5 MG PO QPM Rosuvastatin Calcium (Crestor), 20 MG PO QPM If you have any questions please call us at [phone] or [phone] or [phone]
[2017-06-09 16:19] LABS: BASO % 0.3 %; BASO ABS # 0.02 K/uL (0-0.2); COMPLETE YES; HEMATOCRIT 40.3 % (42-52); IG% 0.2 %; LYMPH % 27.6 %; LYMPH ABS # 1.62 K/uL (1.2-3.4); MEAN CELL VOLUME 87.4 fL (80-100); MEAN CORPUSCULAR HEMOGLOBIN 29.3 pg (25-34); MEAN CORPUSCULAR HGB CONC 33.5 g/dl (32-36); MEAN PLATELET VOLUME 9.8 fL (7.4-10.4); MONO % 8.5 %; NEUT % 62.4 %; PLATELET COUNT 300 K/uL (130-400); RED BLOOD COUNT 4.61 M/uL (4.7-6.1); URINE APPEARANCE CLEAR (CLEAR); URINE BILIRUBIN NEG (NEG); URINE COLOR YELLOW; URINE NITRITE NEG (NEG); URINE SPECIFIC GRAVITY 1.018 (1.000-1.030); UROBILINOGEN NEG (NEG); WHITE BLOOD COUNT 5.87 K/uL (4.8-10.8)
[2017-06-09 16:25] LABS: MANUAL MICROSCOPIC REQUIRED? NO; REVIEW REQ? NO
[2017-06-09 16:29] LABS: BUN/CREATININE RATIO 13.3 (10-20); CALCIUM 9.3 mg/dl (8.5-10.1); CREATININE 1.3 mg/dl (0.60-1.40); POTASSIUM 4.8 mmol/L (3.5-5.1)
[~2017-06-24] VITALS: Ht 170.2 cm; Wt 72.3 kg
[2017-06-24] VITALS (8 sets, daily range): BP systolic 102–165; BP diastolic 55–93; PULSE 59–95; TEMP 36.2–36.8; O2SAT 94–99; Ht 170.2 cm; Wt 72.3 kg
[~2017-06-24 05:23] MED LIST changes: -ASPEC81 PO; -CIPR-255 PO; -CLC100 PO; -DTR5 PO; -LPR25 PO; -ONDA4TAB65 PO; -OXYC7.5T62 PO
[2017-06-24] MEDS ORDERED: LACTATED RINGER'S 1000ML 1,000 ML IV SCH ×2 (06:00)
[2017-06-24] MEDS ORDERED: ACETAMINOPHEN IV 1000MG/100ML IV SCH (06:00)
[2017-06-24] MEDS ORDERED: HEPARIN SOD 5000 UNIT/0.5 ML CARP SQ SCH (06:00)
[2017-06-24] MEDS ORDERED: CEFAZOLIN 1000MG/55 ML D5W IV SCH (06:00)
[2017-06-24] MEDS ORDERED: MIDAZOLAM HCL 1 MG/ML 2ML VIAL ONE (06:51)
[2017-06-24] MEDS ORDERED: FENTANYL CITRATE INJ 50 MCG/1 ML 2 ML VIAL ONE (06:51)
[2017-06-24] MEDS ORDERED: BUPIVACAINE 0.5 % 5 MG/1 ML MPF 30ML VIAL ONE (06:56)
--- NOTE | 2017-06-24 07:03 | History & Physical Bridge Note ---
H&P Re-Evaluation Bridge Note: I have examined the patient, reviewed the History & Physical and in the interval since the performance of the History & Physical I have noted the following changes of clinical significance: No changes noted
[2017-06-24] MEDS ORDERED: DEXAMETHASONE SOD INJ 4 MG/ML VIAL ONE (08:30)
[2017-06-24] MEDS ORDERED: PROPOFOL IV EMULSION 10 MG/ML 20 ML VIAL IV ONE (08:30)
[2017-06-24] MEDS ORDERED: CISATRACURIUM BESYLATE IV SOLN 2 MG/ML 10 ML VIAL ONE ×2 (08:30→11:18)
[2017-06-24] MEDS ORDERED: ONDANSETRON INJ 2 MG/ML 2 ML VIAL ONE (08:30)
[2017-06-24] MEDS ORDERED: EpHEDrine SULFATE 50MG/5ML SYR ONE (08:30)
[2017-06-24] MEDS ORDERED: GLYCOPYRROLATE INJ 0.2 MG/ML VIAL ONE (08:39)
[2017-06-24] MEDS ORDERED: NEOSTIGMINE METHYLSULFATE 5 MG/5 ML SYR ONE (08:39)
[2017-06-24] MEDS ORDERED: SURGICEL ABSORB HEMOSTAT 2IN X 14IN TOP ONE (08:53)
[2017-06-24] MEDS: METHYLENE BLUE 0.5% 10 ML VIAL ONE ×2 (08:54→09:02)
[2017-06-24] MEDS ORDERED: FLOSEAL HEMOSTATIC MATRIX 10ML TOP ONE (10:10)
[2017-06-24] MEDS ORDERED: MoRPHine SULFATE 2 MG/ML CARP ONE ×2 (11:06→11:30)
[2017-06-24] MEDS: LACTATED RINGER'S 1000ML 1,000 ML IV SCH ×2 (11:56→21:04)
[2017-06-24] MEDS ORDERED: HYDROmorphone INJ 1 MG/ML SYR IV PRN ×2 (12:00→12:30)
[2017-06-24] MEDS ORDERED: ONDANSETRON INJ 2 MG/ML 2 ML VIAL IV PRN ×2 (12:00→12:30)
[2017-06-24] MEDS ORDERED: KETOROLAC TROMETHAMINE 15 MG/ML VIAL IV PRN (12:00)
[2017-06-24] MEDS ORDERED: OXYBUTYNIN CHLORIDE 5 MG TAB PO PRN (12:00)
--- NOTE | 2017-06-24 12:12 | [facility] Post Operative Brief Note ---
Immediate Operative Summary Operative Date Jun 24, 2017. Pre-Operative Diagnosis cT1c [place] 3+4 prostate cancer Post-Operative Diagnosis Same Procedure(s) Performed Robotic Assisted Laparoscopic Radical Retropubic Prostatectomy, Bilateral Pelvic Lymph Node Dissection Surgeon Dr Laurent Martin Straw Boss Surgeon(s) Kemi HUITRON Estimated Blood Loss 100 cc Findings Large, irregular prostate with patulous bladder neck - reconstructed with watertight anastomosis. Fluids (cc crystalloids) 1600 cc Specimens As per Surgeon Pernament A. Gina Prostatic Fat B. Prostate and Seminal Vesicles C. Bladder Neck Margin D. Pelvic Lymph Nodes, Clip on Left E. Pelvic Lymph Nodes, Right Drains 20 fr 15 cc H2O, #10 MADDY drain Anesthesia GAET + local Complication(s) None Disposition Recovery Room / PACU
--- NOTE | 2017-06-24 12:23 | [facility] Operative Report ---
Operative Report Operative Date Jun 24, 2017. Pre-Operative Diagnosis cT1c [place] 3+4 prostate cancer Post-Operative Diagnosis Same Procedure(s) Performed Robotic Assisted Laparoscopic Radical Retropubic Prostatectomy, Bilateral Pelvic Lymph Node Dissection, Bladder Neck Reconstruction. Surgeon Dr Laurent Martin Travelers' Aid Worker Surgeon(s) Kemi HUITRON Estimated Blood Loss 100 cc Findings Large, irregular prostate with patulous bladder neck - reconstructed with watertight anastomosis. Fluids 1600 cc Specimens As per Surgeon Pernament A. Gina Prostatic Fat B. Prostate and Seminal Vesicles C. Bladder Neck Margin D. Pelvic Lymph Nodes, Clip on Left E. Pelvic Lymph Nodes, Right Drains 20 fr 15 cc H2O, #10 MADDY drain Anesthesia GAET + local Complication(s) None Disposition Recovery Room / PACU Indications 66-year-old male found to have [place] 3+4 cancer on MRI fusion targeted biopsy here for prostatectomy. His preoperative PSA is 29. Staging evaluation was negative for metastasis. Please see H&P for further details. Possible suprapubic tube placement as been discussed the patient and bilateral lymph node dissection is planned due to his PSA value. Intravenous Ancef provided for antibiotic coverage, SCDs used for DVT prophylaxis as well as subcutaneous heparin. Description of Procedure Patient was properly identified and brought to the operative suite after identification of appropriate consent of the chart. General anesthesia with endotracheal intubation was initiated and patient was prepped and draped in standard fashion for this procedure. Full timeout procedure was followed. All port sites were anesthetized with local prior to incision. Supraumbilical incision was made vertically and the abdomen was entered sharply using a visual obturator and a 0 laparoscope. Abdomen was insufflated to 15 mmHg normal intra -abdominal anatomy was appreciated. No evidence of injury on trocar placement was noted. Ports were placed for a fourth arm robotic template including 2 left -sided 7 mm robotic ports, 1 right-sided 7 mm robotic port and a 12 and 5 mm right-sided executive staff assistant ports. Patient was placed in Trendelenburg and robot was brought in and docked. A 0 lens was used to drop the bladder down to the level of the pubic bone. On the left-hand side patient was noted to have a indirect inguinal hernia involving the mesentery of the colon which was reduced to allow for the bladder to be Rojas dropped. Prostate was defatted this was sent for pathologic analysis. Endopelvic fascia was sharply entered on both sides and lateral dissection was carried out. On the right-hand side a nerve sparing dissection was initiated. Partial nerve sparing was undertaken on the left due to the presence of tumor. Dorsal venous complex was skeletonized and controlled using an 0 Vicryl suture on a CT1 needle in a fovneh-le-soaub fashion. Attention was turned to the bladder neck which was inspected using a 30 down lens. This was divided down to the level of the Rojas catheter. Patient was noted to have an uneven bladder neck due to nodular prostate enlargement. This was felt to be most consistent with benign enlargement rather than cancerous involvement. Median lobe elements were present within the bladder as well. Methylene blue was provided to assist with identification of the ureteral orifices. Bladder neck was divided care being taken to avoid buttonholing or excess resection of bladder neck tissue. Ureteral orifices were identified and noted to be clear of the area of dissection. In the posterior plane the bladder neck was dropped until the seminal vesicles and vas deferens were identified in the midline. Vasa were divided and used for mobilization of the prostate. Due to the bulky nature of the prostate the bladder and prosthetic pedicles were taken down prior to completion of the seminal vesicle dissection. Weck clips were used with cold scissors as necessary for division as well as judicious Bovie cautery and bipolar. On the right-hand side a meticulous nerve sparing dissection was carried out to the level of the apex of the gland. A small rim of tissue was left on the left- hand side to hopefully avoid a positive margin on final pathology. After this was complete generous seminal vesicles were dissected free and the rectum was dropped down to level of the apex of the prostate after incising Denonvilliers fascia. Attention was then turned again to the dorsal vein which was divided using hot scissors. Urethra was skeletonized and divided using cold scissors. Rectourethralis fibers were divided of the prostate was brought up into the abdomen where was placed within an Endo Catch bag for retrieval at the end of the case. Excellent hemostasis was appreciated. Rectum was tested under saline irrigation and noted to be free of injury. FloSeal was placed over the prosthetic fossa for additional hemostasis. Attention was then turned to the pelvic lymph node dissection on both sides. Using the external iliac vein, pelvic sidewall and obturator nerve bilateral pelvic lymph node dissections were carried out. Weck clips were used on lymphatics and small vessels as necessary as well as occasional Bovie cautery. Obturator nerve was noted to be intact and uninjured at the end of the case on both sides. Left-sided lymph node packet was marked with a clip for identification. Excellent hemostasis was appreciated after completion of these dissections. Lymph nodes were placed within and second Endo Catch bag for retrieval at the end of the case. Attention was then turned to the bladder neck which was reconstructed using 3-0 Vicryl sutures in a [id number]-[id number] fashion at its lateral aspects with the added benefit of dropping the ureteral orifices away from the plane of dissection. After this was completed a good aperture to the bladder neck was noted. Bladder was otherwise intact circumferentially. Using a double-armed V-block suture circumferential running anastomosis was performed between the urethra and the bladder neck. 20 [place] silicone catheter was visualized entering the bladder prior to completion of the closure. Seen the need for bladder neck reconstruction decision was made not to place a suprapubic tube as previously considered at the end of the case. 15 mL of sterile water were placed within the catheter and bladder was tested with greater than 120 mL of sterile irrigation with a watertight anastomosis. Forthcoming was removed and a #10 MADDY drain was brought in via the fourth arm port. This was placed within the confines of the pelvis while avoiding placing it directly over the anastomosis. FloSeal was placed within the confines of the pelvis and the sites of the pelvic lymph node dissection. Robotic instruments removed and string to the Endo Catch bag were brought up through the supraumbilical port. Robot was de-docked and the port was enlarged sufficiently to allow for easy removal of the specimen. Excess carbon dioxide gas was removed from the abdomen and the fascia super umbilical port was closed using 0 Vicryl suture on a UR 5 needle. 2-0 silk was used to secure the MADDY drain in place and 4-0 Monocryl was used at the skin as well as Dermabond for closure of the skin incisions. Anesthesia was reversed and patient was transferred to the recovery room in stable condition. Patient will be admitted to the floor for standard postoperative management. I attest to the content of the Intraoperative Record and any orders documented therein. Any exceptions are noted below.
[2017-06-24] MEDS ORDERED: FLUMAZENIL 0.1 MG/1 ML 10 ML VIAL IV PRN (12:30)
[2017-06-24] MEDS ORDERED: PROMETHAZINE HCL INJ 12.5 MG in SODIUM CHLORIDE 0.9% 50ML 50 ML IV PRN (12:30)
[2017-06-24] MEDS ORDERED: EpHEDrine SULFATE INJ 50 MG/ML AMP IV PRN (12:30)
[2017-06-24] MEDS ORDERED: NALOXONE HCL 0.4 MG/1 ML VIAL/CARP IV PRN (12:30)
[2017-06-24] MEDS ORDERED: ATROPINE SULFATE 0.1 MG/ML 5ML SYR IV PRN (12:30)
[2017-06-24] MEDS ORDERED: LABETALOL HCL IV 5 MG/ML 20ML IV PRN (12:30)
--- NOTE | 2017-06-24 13:00 | Anesthesiology Progress Note ---
Anesthesia Post Op Note Date & Time Jun 24, 2017 at 13:00 Vital Signs Pain Intensity: 3 Vital Signs Past 12 Hours Date Time Temp Pulse Resp B/P (MAP) Pulse Ox O2 Delivery O2 Flow Rate FiO2 06/24/17 12:45 66 15 115/64 98 Nasal Cannula 2 06/24/17 12:35 73 16 111/70 99 Nasal Cannula 2 06/24/17 12:25 69 17 117/59 100 Mask 10 06/24/17 12:15 70 18 112/63 99 Mask 10 06/24/17 12:05 70 15 116/63 100 Mask 10 06/24/17 11:58 36.3 74 12 118/65 100 Mask 10 06/24/17 05:48 36.7 59 18 165/93 (117) 99 Room Air Notes Mental Status: alert / awake / arousable, participated in evaluation Pt Amnestic to Procedure: Yes Nausea / Vomiting: adequately controlled Pain: adequately controlled Airway Patency, RR, SpO2: stable & adequate BP & HR: stable & adequate Hydration State: stable & adequate Anesthetic Complications: no major complications apparent
[2017-06-24 13:11] LABS: HEMATOCRIT 39.6 % (42-52); MEAN CELL VOLUME 87.2 fL (80-100); MEAN CORPUSCULAR HEMOGLOBIN 28.6 pg (25-34); MEAN PLATELET VOLUME 9.4 fL (7.4-10.4); PLATELET COUNT 280 K/uL (130-400); RED BLOOD COUNT 4.54 M/uL (4.7-6.1); WHITE BLOOD COUNT 12.13 K/uL (4.8-10.8)
[2017-06-24 13:21] LABS: MEAN CORPUSCULAR HGB CONC 32.8 g/dl (32-36)
[2017-06-24 13:40] LABS: BUN/CREATININE RATIO 11.7 (10-20); CALCIUM 8.5 mg/dl (8.5-10.1); CREATININE 1.5 mg/dl (0.60-1.40); POTASSIUM 3.9 mmol/L (3.5-5.1)
[2017-06-24] MEDS: ACETAMINOPHEN 500 MG TAB PO SCH ×2 (14:36→20:01)
[2017-06-24] MEDS: CEFAZOLIN IV 2,000 MG in DEXTROSE 5% 50ML 50 ML IV SCH ×2 (15:53→23:54)
[2017-06-24] MEDS: HEPARIN SOD 5000 UNIT/0.5 ML CARP SQ SCH (19:59)
[2017-06-24] MEDS ORDERED: ROSUVASTATIN CALCIUM 20 MG TAB PO SCH (21:00)
[2017-06-24] MEDS: DOCUSATE SODIUM 100 MG CAP PO SCH (21:04)
[2017-06-24] MEDS: METOPROLOL TARTRATE 25 MG TAB PO SCH (21:08)
[2017-06-25] MEDS: ACETAMINOPHEN 500 MG TAB PO SCH ×3 (01:53→14:00)
[2017-06-25 03:15] VITALS: BP 114/55; PULSE 69; TEMP 36.4; O2SAT 98
[2017-06-25] MEDS: LACTATED RINGER'S 1000ML 1,000 ML IV SCH (06:04)
[2017-06-25] MEDS: HEPARIN SOD 5000 UNIT/0.5 ML CARP SQ SCH (06:06)
[2017-06-25 06:45] LABS: COMPLETE YES; HEMATOCRIT 37.5 % (42-52); IG% 0.2 %; LYMPH % 7.1 %; LYMPH ABS # 0.77 K/uL (1.2-3.4); MEAN CELL VOLUME 87.8 fL (80-100); MEAN CORPUSCULAR HEMOGLOBIN 28.1 pg (25-34); MEAN PLATELET VOLUME 9.5 fL (7.4-10.4); NEUT % 85.7 %; PLATELET COUNT 264 K/uL (130-400); RED BLOOD COUNT 4.27 M/uL (4.7-6.1); WHITE BLOOD COUNT 10.79 K/uL (4.8-10.8)
[2017-06-25 07:18] LABS: BUN/CREATININE RATIO 13.1 (10-20); CALCIUM 8.2 mg/dl (8.5-10.1); CREATININE 1.4 mg/dl (0.60-1.40); POTASSIUM 4.3 mmol/L (3.5-5.1)
[2017-06-25 07:19] VITALS: BP 130/74; PULSE 64; TEMP 36.4; O2SAT 98
--- NOTE | 2017-06-25 08:28 | Progress Note ---
Subjective Date of Service: Jun 25, 2017. Subjective Pt evaluation today including: conversation w/ patient, physical exam, chart review, lab review, review of inpatient medication list Pain: Controlled PO Intake: Mady clears, poor appetite Voiding: bangura catheter in place (urine clear) 66 yo male POD#1 s/p RALRP. He notes poor appetite this AM, mady clears yesterday , no nausea or emesis. Ambulatory in room at interview this AM, no specific c/ o. UOP improved with hydration yesterday, Cr normalizing. Problem List Medical Problems: (1) Back pain Status: Acute (2) Syncope Status: Acute Review of Systems Constitutional: No fever, No chills Eyes: No worsening of vision ENT: No hearing loss Respiratory: No sputum, No wheezing, No shortness of breath Cardiac: No chest pain Abdomen: No nausea, No vomiting Male : No hematuria Neurologic: No memory loss, No paralysis Psychiatric: No anxiety Endo: No excessive thirst Skin: No new/changing skin lesions, No color change Objective Vital Signs Date Time Temp Pulse Resp B/P (MAP) Pulse Ox O2 Delivery O2 Flow Rate FiO2 06/25/17 07:19 36.4 64 18 130/74 (92) 98 Room Air 06/25/17 03:15 36.4 69 16 114/55 (74) 98 Room Air 06/25/17 00:00 Room Air 06/24/17 23:49 36.8 74 14 102/55 (71) 97 Room Air 06/24/17 20:00 36.7 86 18 107/63 (78) 95 Room Air 06/24/17 16:20 36.4 95 18 114/69 (84) 94 Room Air 06/24/17 15:50 Room Air 06/24/17 15:20 36.2 90 18 111/67 (82) 96 Room Air 06/24/17 14:22 36.6 77 18 103/66 (78) 95 Room Air 06/24/17 13:55 36.6 76 16 114/67 (83) 94 Room Air 06/24/17 13:20 96 Room Air 06/24/17 13:05 69 15 109/69 98 Nasal Cannula 2 06/24/17 12:55 36.4 69 18 118/67 98 Nasal Cannula 2 06/24/17 12:45 66 15 115/64 98 Nasal Cannula 2 06/24/17 12:35 73 16 111/70 99 Nasal Cannula 2 06/24/17 12:25 69 17 117/59 100 Mask 10 06/24/17 12:15 70 18 112/63 99 Mask 10 06/24/17 12:05 70 15 116/63 100 Mask 10 06/24/17 11:58 36.3 74 12 118/65 100 Mask 10 Physical Exam General Appearance: WD/WN, no apparent distress, + thin ENT: hearing grossly normal Neck: supple, no adenopathy Respiratory/Chest: no respiratory distress, no accessory muscle use Cardiovascular: no JVD Abdomen: non tender, soft, + pertinent finding (inc c/d/i with dermabond) Neurologic/Psychiatric: alert, oriented x 3 Skin: normal color Laboratory Results Last 24 Hours Test 06/24/17 12:56 06/25/17 06:35 White Blood Count 12.13 K/uL 10.79 K/uL Red Blood Count 4.54 M/uL 4.27 M/uL Hemoglobin 13.0 g/dL 12.0 g/dL Hematocrit 39.6 % 37.5 % Mean Corpuscular Volume 87.2 fL 87.8 fL Mean Corpuscular Hemoglobin 28.6 pg 28.1 pg Mean Corpuscular Hemoglobin Concent 32.8 g/dl 32.0 g/dl RDW Standard Deviation 41.0 fL 41.9 fL RDW Coefficient of Variation 12.7 % 13.0 % Platelet Count 280 K/uL 264 K/uL Mean Platelet Volume 9.4 fL 9.5 fL Sodium Level 140 mmol/L 139 mmol/L Potassium Level 3.9 mmol/L 4.3 mmol/L Chloride Level 107 mmol/L 107 mmol/L Carbon Dioxide Level 26 mmol/L 27 mmol/L Anion Gap 7.0 mmol/L 5.0 mmol/L Blood Urea Nitrogen 18 mg/dl 18 mg/dl Creatinine 1.50 mg/dl 1.40 mg/dl Est Creatinine Clear Calc Drug Dose 45.9 ml/min 49.2 ml/min Estimated GFR () 55.8 60.7 Estimated GFR (Non- 48.2 52.4 BUN/Creatinine Ratio 11.7 13.1 Random Glucose 139 mg/dl 105 mg/dl Calcium Level 8.5 mg/dl 8.2 mg/dl Neutrophils (%) (Auto) 85.7 % Lymphocytes (%) (Auto) 7.1 % Monocytes (%) (Auto) 7.0 % Eosinophils (%) (Auto) 0.0 % Basophils (%) (Auto) 0.0 % Neutrophils # (Auto) 9.25 K/uL Lymphocytes # (Auto) 0.77 K/uL Monocytes # (Auto) 0.75 K/uL Eosinophils # (Auto) 0.00 K/uL Basophils # (Auto) 0.00 K/uL Immature Granulocyte % (Auto) 0.2 % Immature Granulocyte # (Auto) 0.02 K/uL Assessment and Plan A/P 66 yo male POD#1 s/p RALRP, doing well As noted with patient we need to ensure he will tolerate regular PO prior to DC home this PM. Will advance diet with breakfast and lunch. Bangura care and DC instructions reviewed. Comfortable on current regimen. Likely DC MADDY and DC home this PM if he does well. Discharge planning: home
[2017-06-25] MEDS ORDERED: DTR5 PO ×2 (08:30)
[2017-06-25] MEDS ORDERED: OXYC7.5T62 PO (08:30)
[2017-06-25] MEDS ORDERED: CLC100 PO ×2 (08:30)
[2017-06-25] MEDS ORDERED: CIPR-255 PO ×2 (08:30)
--- NOTE | 2017-06-25 08:31 | Discharge Instructions ---
Discharge Instructions Date of Service Jun 25, 2017. Admission Reason for Admission: Prostate Cancer Discharge Discharge Diagnosis / Problem: Prostate Cancer Discharge Goals Goal(s): Improve disease control, Prevent Disease Progression Activity Recommendations Activity Limitations: per Instructions/Follow-up section . Instructions / Follow-Up Instructions / Follow-Up 1. Do not lift >15lbs x 6 weeks. 2. No heavy exercise x 6 weeks. You may engage in light activity such as walking and stairs as tolerated. 3. No sexual intercourse until cleared by Dr. Martin or Dr. Abernathy. 4. [address] drive x [address] while taking narcotics. 5. Finish all of the antibiotic you have been prescribed. 6. Immediately call our office at [phone] if your catheter is removed for any reason. 7. Follow-up as scheduled. Please call our office at [phone] if you need to reschedule for any reason. . Current Hospital Diet Hospital Diet(s): Regular Diet Discharge Diet Recommended Diet: Regular Diet Procedures Procedures Performed: Robotic Assisted Laparoscopic Radical Retropubic Prostatectomy, Bilateral Pelvic Lymph Node Dissection, Bladder Neck Reconstruction. Pending Studies Studies pending at discharge: no Laboratory Results Lipid Panel Test 06/09/17 15:40 Range/Units Triglycerides Level 94 0-150 mg/dl Cholesterol Level 124 0-200 mg/dl HDL Cholesterol 53 mg/dl Cholesterol/HDL Ratio 2.3 LDL Cholesterol, Calculated 52 mg/dl Medical Emergencies . Who to Call and When: Medical Emergencies: If at any time you feel your situation is an emergency, please call 911 immediately. . Non-Emergent Contact Non-Emergency issues call your: Primary Care Provider, Urologist Call Non-Emergent contact if: temperature is above 101 . . "Provider Documentation" section prepared by Sharonda Bedolla. . VTE Core Measure Inpt VTE Proph given/why not?: Unfractionated heparin SQ, SCD's [place] Drug Monitoring Program Search Results: no issues identified
--- NOTE | 2017-06-25 08:34 | Anesthesiology Progress Note ---
Anesthesia Post Op Note Date & Time Jun 25, 2017 at 08:33 Vital Signs Pain Intensity: 4.0 Vital Signs Past 12 Hours Date Time Temp Pulse Resp B/P (MAP) Pulse Ox O2 Delivery O2 Flow Rate FiO2 06/25/17 07:19 36.4 64 18 130/74 (92) 98 Room Air 06/25/17 03:15 36.4 69 16 114/55 (74) 98 Room Air 06/25/17 00:00 Room Air 06/24/17 23:49 36.8 74 14 102/55 (71) 97 Room Air Notes Mental Status: alert / awake / arousable, participated in evaluation Pt Amnestic to Procedure: Yes Nausea / Vomiting: adequately controlled Pain: adequately controlled Airway Patency, RR, SpO2: stable & adequate BP & HR: stable & adequate Hydration State: stable & adequate Anesthetic Complications: no major complications apparent
[2017-06-25] MEDS: DOCUSATE SODIUM 100 MG CAP PO SCH (09:34)
[2017-06-25] MEDS: METOPROLOL TARTRATE 25 MG TAB PO SCH (09:34)
[2017-06-25] MEDS: CEFAZOLIN IV 2,000 MG in DEXTROSE 5% 50ML 50 ML IV SCH (09:36)
[2017-06-25] MEDS: OXYCODONE/ACETAMINOPHEN 7.5-325 TAB PO PRN ×2 (09:36→13:48)
[2017-06-25 14:01] VITALS: BP 130/74; PULSE 64; TEMP 36.4; O2SAT 98
--- NOTE | 2017-07-02 16:45 | DISCHARGE SUMMARY ---
ADMITTING DIAGNOSIS: Prostate cancer. DISCHARGE DIAGNOSIS: Same. PROCEDURES OVER THE COURSE OF ADMISSION: Include a robotic prostatectomy on 06/24/2017. ADMITTING ATTENDING: Dr. Laurent Martin. COMPLICATIONS OVER THE COURSE OF ADMISSION: None. BRIEF HISTORY: Mr. Alegre is a pleasant 66-year-old male with a history of Jameel 3+4 adenocarcinoma of the prostate who has decided upon a robotic prostatectomy to manage his disease. Please see H&P for further details. He is being admitted for this purpose after a robotic prostatectomy. Intravenous antibiotic coverage and SCDs and heparin used for antibiotic prophylaxis and DVT prophylaxis. HOSPITAL COURSE: The patient was admitted to the hospital after uncomplicated robotic prostatectomy on the 24 of June. Over the course of patient's admission diet and activity were advanced. By his second day the patient was tolerating a regular diet p.o. without emesis and ambulating in the hallways. He is comfortable on oral pain medication and Rojas catheter was draining well. The patient was considered stable for discharge home at this time. Please see progress notes for further details. DISCHARGE INSTRUCTIONS: Please see discharge instruction sheet for activity limitations, postoperative parameters and medication list. The patient is instructed to contact us should he note any fevers, chills, nausea, vomiting or other significant difficulties in the postoperative period. Postoperative appointment for a trial of void and followup is confirmed.
== END 2017-06-25 14:30 | disposition home or self-care (01) | DRG 708 ==
LOC: C.ACU 05:23 → C.MSN 12:05 → ENRESERV 12:51
PROVIDERS: ADMIT Urology; ATTEND Urology
PROC: 0VT04ZZ Resection of Prostate, Percutaneous Endoscopic Approach (ICD-10-PCS; principal; 2017-06-24 07:30)
PROC: 07BC4ZX Excision of Pelvis Lymphatic, Percutaneous Endoscopic Approach, Diagnostic (ICD-10-PCS; principal; 2017-06-24 07:30)
PROC: 8E0W4CZ Robotic Assisted Procedure of Trunk Region, Percutaneous Endoscopic Approach (ICD-10-PCS; principal; 2017-06-24 07:30)
PROC: 0VT34ZZ Resection of Bilateral Seminal Vesicles, Percutaneous Endoscopic Approach (ICD-10-PCS; principal; 2017-06-24 07:30)
PROC: 0TU Urinary System, Supplement (ICD-10-PCS; principal; 2017-06-24 07:30)
PROC: 0YQ64ZZ Repair Left Inguinal Region, Percutaneous Endoscopic Approach (ICD-10-PCS; principal; 2017-06-24 07:30)
DX: C61 Malignant neoplasm of prostate (principal); I65.29 Occlusion and stenosis of unspecified carotid artery; K40.90 Unilateral inguinal hernia, without obstruction or gangrene, not specified as recurrent

== ENCOUNTER 2017-06-26 12:17 | Inpatient (IN) | payer BC, OTHER ==
[~2017-06-26] VITALS: Ht 170.2 cm; Wt 73.6 kg
[~2017-06-26 12:17] MED LIST changes: +CIPR-255 PO; +CLC100 PO; +DTR5 PO; -DUTA0.5C PO; +OXYC7.5T62 PO
[2017-06-26] MEDS ORDERED: ONDANSETRON INJ 2 MG/ML 2 ML VIAL IV STA (12:57)
[2017-06-26] MEDS ORDERED: ONDANSETRON INJ 2 MG/ML 2 ML VIAL ONE (12:58)
[2017-06-26 13:20] LABS: ISTAT CREATININE 1.3 mg/dl (0.6-1.3); ISTAT HEMOGLOBIN 12.2 g/dl (14.0-18.0); ISTAT IONIZED CALCIUM 1.14 mmol/l (1.12-1.32)
[2017-06-26] MEDS ORDERED: SODIUM CHLORIDE 0.9% 1000ML 1,000 ML IV STA (13:20)
--- NOTE | 2017-06-26 13:22 | EMERGENCY ROOM VISIT NOTE ---
History Report prepared by Divine: Daisy Rios Under the Supervision of: Dr. Woody Erickson M.D. First contact with patient: 13:00 Chief Complaint: NAUSEA Stated Complaint: NAUSEA, PAIN Nursing Triage Summary: Pt had prostate removed on by Dr. Martin. Pt reports nausea and pain that began this morning. Pt unable to keep down meds. reports pt still has bangura cath in place. History of Present Illness The patient is a 66 year old male who presents to the Emergency Room with complaints of persistent abdominal pain that increased this morning. He currently rates his discomfort as a 5/10 in severity. The patient notes that he had a prostate resection done on and was discharged from the hospital yesterday. The patient's states that this morning around 0400 the patient woke with nausea and vomiting, noting that the patient could not keep his medications down. She reports that the patient has been experiencing abdominal pain. The patient states that he notes worsened pain with deep breathing. He denies being on any anti-coagulants. The patient states that he has a Bangura catheter in place that is draining properly. Source of History: patient Onset: this morning Position: abdomen Symptom Intensity: 5/10 Timing: other (persistent, increased) Modifying Factors (Worsening): breathing (deep) Associated Symptoms: + nausea, + vomiting Review of Systems See HPI for pertinent positives & negatives. A total of 10 systems reviewed and were otherwise negative. Past Medical & Surgical Medical Problems: (1) HTN (hypertension) (2) Hypertensive urgency (3) Ileus (4) Prostate cancer Family History FH: heart disease Social History Smoking Status: Never Smoker Drug Use: none Marital Status: Housing Status: lives with family Occupation Status: employed Current/Historical Medications Scheduled Ciprofloxacin Hcl (Cipro), 500 MG PO BID Docusate Sodium (Docusate Sodium), 100 MG PO BID Metoprolol Tartrate (Lopressor) (Lopressor), 25 MG PO BID Naproxen (Aleve), 220 MG PO PRN Rosuvastatin Calcium (Crestor), 20 MG PO QPM Scheduled PRN Oxybutynin Chloride (Oxybutynin Chloride), 5 MG PO Q8 PRN for BLADDER SPASMS Oxycodone/Acetaminophen 7.5MG/325MG (Endocet 7.5MG/325MG), 1-2 TAB PO Q4H PRN for severe pain (pain scale 7-10) Allergies Coded Allergies: No Known Allergies (Unverified , 06/26/17) Physical Exam Vital Signs Date Time Temp Pulse Resp B/P (MAP) Pulse Ox O2 Delivery O2 Flow Rate FiO2 06/26/17 13:24 77 06/26/17 12:27 36.7 69 20 127/80 95 Room Air Physical Exam GENERAL: Patient is a healthy-appearing well-nourished male HEAD: Normocephalic atraumatic EYES: Ocular movements intact pupils equal and react to light OROPHARYNX mucous membranes are moist no exudates present no erythema or edema present NECK: Supple no nuchal rigidity CHEST: Good equal expansion LUNGS: Clear and equal to auscultation CARDIAC: Normal S1 and S2 ABDOMEN: Soft, diffusely tender about the abdomen. BACK: No CVA tenderness EXTREMITIES: No pain upon palpation normal muscle strength in all groups no clubbing cyanosis or edema NEURO: Patient is following commands and answering questions appropriately. Alert and oriented x3 Cranial Nerves 2-12 grossly intact Medical Decision & Procedures ER Provider Diagnostic Interpretation: CT results as stated below per my review and radiologist interpretation: ABD/PELVIS IV CONTRAST ONLY CLINICAL HISTORY: 66 years-old Male presenting with Pt c/o N V, diffuse abd pain, history of prostatectomy 2 days ago. TECHNIQUE: Multidetector CT of the abdomen and pelvis was performed after the administration of intravenous contrast. IV contrast: 93 mL of Optiray 320. A dose lowering technique was used consistent with the principles of ALARA (as low as reasonably achievable). COMPARISON: Nuclear medicine bone scan from 05/11/2017 and prostate MR from 02/25/2017. CT DOSE (mGy.cm): The estimated cumulative dose is 321.66 mGy.cm. FINDINGS: Office Rep topogram: Unremarkable. Lung bases: Dependent consolidation, right greater than left. Normal heart size. No pericardial effusion. Trace left effusion. Liver: Normal morphology. No liver lesion. Patent hepatic vasculature. Biliary: No intrahepatic or extrahepatic biliary ductal dilatation. Normal gallbladder. Pancreas: Mild prominence of the pancreatic duct without evidence of a carmencita mass or calculus in the region of the ampulla of Vater. Suspected fatty infiltration of the pancreatic head given slight decrease density in comparison to the remainder the pancreas without convincing evidence of a mass lesion allowing for this single phase examination. Spleen: Normal. Adrenal glands: Normal. Kidneys and ureters: Mild dilatation of the ureters without convincing evidence of hydronephrosis. Mild bilateral perinephric fat ulceration scattered subcentimeter hypodensities in the kidneys to small to characterize but likely simple cysts. Bladder: Decompressed with a Bangura catheter. No evidence of urine leakage at the ureteral anastomosis. Pelvic organs: Postsurgical changes of prostatectomy. No fluid collection in the operative bed. Infiltration along the mesorectal fascia and presacral space. Bowel: Apparent wall thickening of the rectum. Gaseous distention of colon. Normal appendix. No bowel obstruction. Inspissated material in the small bowel may suggest delayed transit. Peritoneal cavity: Small amount of ascites in the right paracolic gutter. No free peritoneal gas. Vasculature: Aorta and IVC patent and normal in caliber. Lymph nodes: No enlarged lymph nodes in the abdomen or pelvis. Abdominal wall: Small amount of extraperitoneal gas along the left lower abdominal wall, likely postsurgical change. Musculoskeletal: Degenerative changes of the spine. IMPRESSION: 1. Postsurgical changes of prostatectomy with expected extraperitoneal gas. Dilatation of the bilateral ureters may be postsurgical or chronic secondary to bladder outlet obstruction. No evidence of dilated renal collecting systems to suggest obstruction. 2. Infiltration along the mesorectal fascia and presacral space may be postsurgical or indicate post radiation change. 3. Apparent wall thickening of the rectum. This may be due to underdistention, although if present this could represent post radiation change or inflammation. Consideration for direct visualization if clinically indicated. This was better demonstrated on dedicated rectal MR. 4. Dependent consolidation, right greater than left, likely atelectasis. 5. Prominence of the pancreatic duct, which is of uncertain etiology. No convincing evidence of a focal pancreatic head mass within limitations of this single phase examination. Electronically signed by: Dio Mejia M.D. 06/26/2017 2:26 PM Dictated Date/Time: 06/26/2017 2:14 PM Laboratory Results 06/26/17 11:48 Red Blood Count 4.20, Mean Corpuscular Volume 87.6, Mean Corpuscular Hemoglobin 28.8, Mean Corpuscular Hemoglobin Concent 32.9, Mean Platelet Volume 10.2, Neutrophils (%) (Auto) 84.1, Lymphocytes (%) (Auto) 7.7, Monocytes (%) (Auto) 7.5, Eosinophils (%) (Auto) 0.1, Basophils (%) (Auto) 0.1, Neutrophils # (Auto) 7.44, Lymphocytes # (Auto) 0.68, Monocytes # (Auto) 0.66, Eosinophils # (Auto) 0.01, Basophils # (Auto) 0.01 06/26/17 11:48 Test 06/26/17 11:48 06/26/17 13:09 White Blood Count 8.84 K/uL (4.8-10.8) Red Blood Count 4.20 M/uL (4.7-6.1) Hemoglobin 12.1 g/dL (14.0-18.0) Hematocrit 36.8 % (42-52) Mean Corpuscular Volume 87.6 fL (80-100) Mean Corpuscular Hemoglobin 28.8 pg (25-34) Mean Corpuscular Hemoglobin Concent 32.9 g/dl (32-36) Platelet Count 269 K/uL (130-400) Mean Platelet Volume 10.2 fL (7.4-10.4) Neutrophils (%) (Auto) 84.1 % Lymphocytes (%) (Auto) 7.7 % Monocytes (%) (Auto) 7.5 % Eosinophils (%) (Auto) 0.1 % Basophils (%) (Auto) 0.1 % Neutrophils # (Auto) 7.44 K/uL (1.4-6.5) Lymphocytes # (Auto) 0.68 K/uL (1.2-3.4) Monocytes # (Auto) 0.66 K/uL (0.11-0.59) Eosinophils # (Auto) 0.01 K/uL (0-0.5) Basophils # (Auto) 0.01 K/uL (0-0.2) RDW Standard Deviation 41.9 fL (36.4-46.3) RDW Coefficient of Variation 13.0 % (11.5-14.5) Immature Granulocyte % (Auto) 0.5 % Immature Granulocyte # (Auto) 0.04 K/uL (0.00-0.02) Prothrombin Time 11.2 SECONDS (9.0-12.0) Prothromb Time International Ratio 1.0 (0.9-1.1) Activated Partial Thromboplast Time 28.7 SECONDS (21.0-31.0) Partial Thromboplastin Ratio 1.1 Est Creatinine Clear Calc Drug Dose 53.0 ml/min Estimated GFR () 66.4 Estimated GFR (Non- 57.3 BUN/Creatinine Ratio 14.1 (10-20) Calcium Level 8.7 mg/dl (8.5-10.1) Total Bilirubin 0.4 mg/dl (0.2-1) Direct Bilirubin 0.1 mg/dl (0-0.2) Aspartate Amino Transf (AST/SGOT) 16 U/L (15-37) Alanine Aminotransferase (ALT/SGPT) 13 U/L (12-78) Alkaline Phosphatase 84 U/L (45-117) Total Protein 6.9 gm/dl (6.4-8.2) Albumin 3.0 gm/dl (3.4-5.0) Lipase 245 U/L (73-393) Bedside Hemoglobin 12.2 g/dl (14.0-18.0) Bedside Hematocrit 36 % (42-52) Bedside Sodium 138 mEq/L (135-144) Bedside Potassium 3.9 mEq/L (3.3-5.0) Bedside Chloride 100 mEq/L (101-112) Bedside Total CO2 25 mEq/l (24-31) Anion Gap 18.0 mmol/L (16-25) Bedside Blood Urea Nitrogen 18 mg/dl (7-18) Bedside Creatinine 1.3 mg/dl (0.6-1.3) Bedside Glucose (other) 111 mg/dl (70-99) Bedside Ionized Calcium (Dalila) 1.14 mmol/l (1.12-1.32) Labs reviewed by ED physician. Medications Administered Medications (Trade) Dose Ordered Sig/Yudy Route Start Time Stop Time Status Last Admin Dose Admin Ondansetron HCl (Zofran Inj) 4 mg STK-MED ONCE .ROUTE 06/26/17 12:58 06/26/17 12:59 DC 06/26/17 12:58 4 MG Sodium Chloride 1,000 ml @ 999 mls/hr Q1H1M STAT IV 06/26/17 13:20 06/26/17 14:20 DC 06/26/17 13:20 999 MLS/HR ED Course 1257: Ordered Zofran Inj 4 mg IV. 1316: Past medical records reviewed. The patient was evaluated in room C6. A complete history and physical examination was performed. 1320: Ordered Sodium Chloride 1000 ml @ 999 mls/hr IV. 1500: Dr. Clark, Urology evaluated the patient and he would like the patient evaluated under the hospitalist service for further treatment and evaluation. 1505: I reevaluated the patient and he is resting. I discussed the exam findings with him and I discussed the treatment plan. He verbalized complete understanding and agreement. He will be evaluated for further treatment. 1511: I discussed the patients case with KESHAV Fontanez. He is going to evaluate the patient for further treatment. Medical Decision Differential diagnosis: Etiologies such as appendicitis, diverticulitis, PUD, biliary pathology, UTI, pancreatitis, obstruction, mesenteric ischemia, aortic pathology, infections, inflammatory bowel disease, renal colic, as well as others were entertained. This is a 66-year-old male who presents emergency department complaining of abdominal pain and vomiting. The patient recently had his prostate removed. The patient does not have an elevation in his white blood count cell count however he is exquisitely tender on examination. For this reason he was sent for CAT scan of the abdomen and pelvis. I did discuss the results with the urologist on-call who asked that the patient be admitted to the medicine service. Patient was in agreement with the treatment plan. Medication Reconcilliation Current Medication List: was personally reviewed by me Blood Pressure Screening Patient's blood pressure: Normal blood pressure Consults Time Called: 1510 Consulting Physician: KESHAV Fontanez Returned Call: 1511 I discussed the patients case with KESHAV Fontanez. He is going to evaluate the patient for further treatment. Impression Primary Impression: Intractable vomiting Scribe Attestation The scribe's documentation has been prepared under my direction and personally reviewed by me in its entirety. I confirm that the note above accurately reflects all work, treatment, procedures, and medical decision making performed by me. Departure Information Dispostion Being Evaluated By Hospitalist Referrals No Doctor, Assigned (PCP) Problem Qualifiers Primary Impression: Intractable vomiting Vomiting type: unspecified Nausea presence: unspecified Qualified Codes: R11.10 - Vomiting, unspecified
[2017-06-26] MEDS ORDERED: OPTIRAY 320 IV PRN (13:30)
[2017-06-26 14:07] LABS: BASO % 0.1 %; BASO ABS # 0.01 K/uL (0-0.2); COMPLETE YES; EOS % 0.1 %; HEMATOCRIT 36.8 % (42-52); IG% 0.5 %; LYMPH % 7.7 %; LYMPH ABS # 0.68 K/uL (1.2-3.4); MEAN CELL VOLUME 87.6 fL (80-100); MEAN CORPUSCULAR HEMOGLOBIN 28.8 pg (25-34); MEAN CORPUSCULAR HGB CONC 32.9 g/dl (32-36); MEAN PLATELET VOLUME 10.2 fL (7.4-10.4); MONO % 7.5 %; NEUT % 84.1 %; PLATELET COUNT 269 K/uL (130-400); WHITE BLOOD COUNT 8.84 K/uL (4.8-10.8)
[2017-06-26 14:13] LABS: BUN/CREATININE RATIO 14.1 (10-20); CALCIUM 8.7 mg/dl (8.5-10.1); CREATININE 1.3 mg/dl (0.60-1.40); POTASSIUM 3.9 mmol/L (3.5-5.1)
--- NOTE | 2017-06-26 14:28 | DIAGNOSTIC IMAGING REPORT ---
ABD/PELVIS IV CONTRAST ONLY CLINICAL HISTORY: 66 years-old Male presenting with Pt c/o N V, diffuse abd pain, history of prostatectomy 2 days ago. TECHNIQUE: Multidetector CT of the abdomen and pelvis was performed after the administration of intravenous contrast. IV contrast: 93 mL of Optiray 320. A dose lowering technique was used consistent with the principles of ALARA (as low as reasonably achievable). COMPARISON: Nuclear medicine bone scan from 05/11/2017 and prostate MR from 02/25/2017. CT DOSE (mGy.cm): The estimated cumulative dose is 321.66 mGy.cm. 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 Lung bases: Dependent consolidation, right greater than left. Normal heart size. No pericardial effusion. Trace left effusion. Liver: Normal morphology. No liver lesion. Patent hepatic vasculature. Biliary: No intrahepatic or extrahepatic biliary ductal dilatation. Normal gallbladder. Pancreas: Mild prominence of the pancreatic duct without evidence of a carmencita mass or calculus in the region of the ampulla of Vater. Suspected fatty infiltration of the pancreatic head given slight decrease density in comparison to the remainder the pancreas without convincing evidence of a mass lesion allowing for this single phase examination. Spleen: Normal. Adrenal glands: Normal. Kidneys and ureters: Mild dilatation of the ureters without convincing evidence of hydronephrosis. Mild bilateral perinephric fat ulceration scattered subcentimeter hypodensities in the kidneys to small to characterize but likely simple cysts. Bladder: Decompressed with a Rojas catheter. No evidence of urine leakage at the ureteral anastomosis. Pelvic organs: Postsurgical changes of prostatectomy. No fluid collection in the operative bed. Infiltration along the mesorectal fascia and presacral space. Bowel: Apparent wall thickening of the rectum. Gaseous distention of colon. Normal appendix. No bowel obstruction. Inspissated material in the small bowel may suggest delayed transit. Peritoneal cavity: Small amount of ascites in the right paracolic gutter. No free peritoneal gas. Vasculature: Aorta and IVC patent and normal in caliber. Lymph nodes: No enlarged lymph nodes in the abdomen or pelvis. Abdominal wall: Small amount of extraperitoneal gas along the left lower abdominal wall, likely postsurgical change. Musculoskeletal: Degenerative changes of the spine. IMPRESSION: 1. Postsurgical changes of prostatectomy with expected extraperitoneal gas. Dilatation of the bilateral ureters may be postsurgical or chronic secondary to bladder outlet obstruction. No evidence of dilated renal collecting systems to suggest obstruction. 2. Infiltration along the mesorectal fascia and presacral space may be postsurgical or indicate post radiation change. 3. Apparent wall thickening of the rectum. This may be due to underdistention, although if present this could represent post radiation change or inflammation. Consideration for direct visualization if clinically indicated. This was better demonstrated on dedicated rectal MR. 4. Dependent consolidation, right greater than left, likely atelectasis. 5. Prominence of the pancreatic duct, which is of uncertain etiology. No convincing evidence of a focal pancreatic head mass within limitations of this single phase examination. Electronically signed by: Dio Mejia M.D. 06/26/2017 2:26 PM Dictated Date/Time: 06/26/2017 2:14 PM
[2017-06-26] MEDS: SODIUM CHLORIDE 0.9% 500ML 500 ML IV SCH ×2 (15:00→16:00)
[2017-06-26] MEDS: KETOROLAC TROMETHAMINE 15 MG/ML VIAL IV. SCH (16:00)
[2017-06-26] MEDS ORDERED: KETOROLAC TROMETHAMINE 30 MG/ML VIAL IV. STA (16:06)
--- NOTE | 2017-06-26 16:25 | History and Physical ---
History & Physical Date & Time of Service: Jun 26, 2017 at 16:18 Chief Complaint: Nausea, Pain Primary Care Physician: No Doctor, Assigned Past Medical/Surgical History Medical Problems: (1) HTN (hypertension) Status: Chronic Family History FH: heart disease Social History Smoking Status: Never Smoker Drug Use: none Marital Status: Housing status: lives with family Occupational Status: employed Multi-Drug Resistant Organisms History of MDRO: No Allergies Coded Allergies: No Known Allergies (Unverified , 06/26/17) Home Medications Scheduled Ciprofloxacin Hcl (Cipro), 500 MG PO BID Docusate Sodium (Docusate Sodium), 100 MG PO BID Metoprolol Tartrate (Lopressor) (Lopressor), 25 MG PO BID Naproxen (Aleve), 220 MG PO PRN Rosuvastatin Calcium (Crestor), 20 MG PO QPM Scheduled PRN Oxybutynin Chloride (Oxybutynin Chloride), 5 MG PO Q8 PRN for BLADDER SPASMS Oxycodone/Acetaminophen 7.5MG/325MG (Endocet 7.5MG/325MG), 1-2 TAB PO Q4H PRN for severe pain (pain scale 7-10) Physical Exam Vital Signs Date Time Temp Pulse Resp B/P (MAP) Pulse Ox O2 Delivery O2 Flow Rate FiO2 06/26/17 13:24 77 06/26/17 12:27 36.7 69 20 127/80 95 Room Air Diagnostics Laboratory Results Results Past 24 Hours Test 06/26/17 11:48 06/26/17 13:09 Range/Units White Blood Count 8.84 4.8-10.8 K/uL Red Blood Count 4.20 4.7-6.1 M/uL Hemoglobin 12.1 14.0-18.0 g/dL Hematocrit 36.8 42-52 % Mean Corpuscular Volume 87.6 80-100 fL Mean Corpuscular Hemoglobin 28.8 25-34 pg Mean Corpuscular Hemoglobin Concent 32.9 32-36 g/dl Platelet Count 269 130-400 K/uL Mean Platelet Volume 10.2 7.4-10.4 fL Neutrophils (%) (Auto) 84.1 % Lymphocytes (%) (Auto) 7.7 % Monocytes (%) (Auto) 7.5 % Eosinophils (%) (Auto) 0.1 % Basophils (%) (Auto) 0.1 % Neutrophils # (Auto) 7.44 1.4-6.5 K/uL Lymphocytes # (Auto) 0.68 1.2-3.4 K/uL Monocytes # (Auto) 0.66 0.11-0.59 K/uL Eosinophils # (Auto) 0.01 0-0.5 K/uL Basophils # (Auto) 0.01 0-0.2 K/uL RDW Standard Deviation 41.9 36.4-46.3 fL RDW Coefficient of Variation 13.0 11.5-14.5 % Immature Granulocyte % (Auto) 0.5 % Immature Granulocyte # (Auto) 0.04 0.00-0.02 K/uL Sodium Level 138 136-145 mmol/L Potassium Level 3.9 3.5-5.1 mmol/L Chloride Level 104 98-107 mmol/L Carbon Dioxide Level 27 21-32 mmol/L Anion Gap 7.0 18.0 16-25 mmol/L Blood Urea Nitrogen 18 7-18 mg/dl Creatinine 1.30 0.60-1.40 mg/dl Est Creatinine Clear Calc Drug Dose 53.0 ml/min Estimated GFR () 66.4 Estimated GFR (Non- 57.3 BUN/Creatinine Ratio 14.1 10-20 Random Glucose 108 70-99 mg/dl Calcium Level 8.7 8.5-10.1 mg/dl Total Bilirubin 0.4 0.2-1 mg/dl Direct Bilirubin 0.1 0-0.2 mg/dl Aspartate Amino Transf (AST/SGOT) 16 15-37 U/L Alanine Aminotransferase (ALT/SGPT) 13 12-78 U/L Alkaline Phosphatase 84 45-117 U/L Total Protein 6.9 6.4-8.2 gm/dl Albumin 3.0 3.4-5.0 gm/dl Lipase 245 73-393 U/L Bedside Hemoglobin 12.2 14.0-18.0 g/dl Bedside Hematocrit 36 42-52 % Bedside Sodium 138 135-144 mEq/L Bedside Potassium 3.9 3.3-5.0 mEq/L Bedside Chloride 100 101-112 mEq/L Bedside Total CO2 25 24-31 mEq/l Bedside Blood Urea Nitrogen 18 7-18 mg/dl Bedside Creatinine 1.3 0.6-1.3 mg/dl Bedside Glucose (other) 111 70-99 mg/dl Bedside Ionized Calcium (Dalila) 1.14 1.12-1.32 mmol/l Impression Assessment and Plan admit #[id number] VTE Prophylaxis VTE Risk Assessment Done? Y/N: Yes Risk Level: Moderate
[2017-06-26 16:35] VITALS: Ht 170.2 cm; Wt 73.6 kg
[2017-06-26 17:06] VITALS: O2SAT 96
[2017-06-26 17:13] LABS: URINE APPEARANCE CLEAR (CLEAR); URINE BILIRUBIN NEG (NEG); URINE COLOR YELLOW; URINE EPITHELIAL CELL AUTO 0-5 /lpf (0-5); URINE NITRITE NEG (NEG); URINE SPECIFIC GRAVITY 1.023 (1.000-1.030); UROBILINOGEN NEG (NEG)
[2017-06-26 17:16] LABS: MANUAL MICROSCOPIC REQUIRED? NO; REVIEW REQ? NO
--- NOTE | 2017-06-26 17:29 | HISTORY & PHYSICAL EXAMINATION ---
DATE OF ADMISSION: 06/26/2017 CHIEF COMPLAINT: Abdominal pain and nausea. HISTORY OF PRESENT ILLNESS: The patient is a very pleasant 66-year-old male who just had a prostatectomy earlier this week, was actually just discharged yesterday, was feeling okay, was eating reasonably, but then unfortunately by the last night, he was basically just being able to eat pretty much clears to a clear liquid diet, may be a full liquid diet and was not sitting that well and then today, he has had nausea and vomiting and pain and his belly hurts pretty much any time he moves around. He is not able to eat or drink and so, he came to the ER for further evaluation. Here, he was found to have findings consistent with an ileus. Urology was consulted and we were asked to assist with admission. He denies any hematemesis. Denies diarrhea and notes that actually having bowel movements, which probably make it feel good. Describes the pain, almost like a bad gas pain, but it will not really go away. He has no fevers, chills, or sweats. No other complaints. REVIEW OF SYSTEMS: Otherwise negative except for as above. PAST MEDICAL HISTORY: Includes hypertension and prostate cancer. PAST SURGICAL HISTORY: Most relevant is robotic assisted laparoscopic radical retropubic prostatectomy and bilateral pelvic lymph node dissection done on June 24. He has also had a cystoscopy and a dental extraction. HOME MEDICATIONS: Listed as Cipro 500 b.i.d., Colace 100 mg b.i.d., metoprolol 25 mg b.i.d., Naprosyn 220 p.r.n. pain, oxybutynin 5 mg p.o. q. 8 hours, Crestor 20 mg in the evening and Endocet 7.5/325 q. 4 hours p.r.n. pain. FAMILY HISTORY: Heart disease. SOCIAL HISTORY: He is and lives with his . Never a smoker. ALLERGIES: No known drug allergies. PHYSICAL EXAMINATION: VITAL SIGNS: Temperature 36.7, pulse 69, respiratory rate 20, blood pressure 127/80, and 95% on room air. GENERAL: He is awake, alert, and oriented x3, pleasant, but lying very still. Does not appear in distress, but definitely appears scared to move. HEENT: Normocephalic and atraumatic. Mucous membranes are moist. CARDIOVASCULAR: Regular without rubs, murmurs, or gallops. LUNGS: Clear to auscultation bilaterally. No rales, rhonchi, or wheezes with good effort. ABDOMEN: Soft. Moderately distended. Diffusely tender without guarding, rebound or rigidity. No masses or organomegaly. EXTREMITIES: Without cyanosis, clubbing or edema. SKIN: Shows no rashes. No pallor or icterus. NEUROLOGIC: Shows cranial nerves II-XII to be grossly intact. Gross motor and sensory are intact. Mental state shows good recent and remote recall. Normal mood and affect. Good judgment and insight. MUSCULOSKELETAL/OSTEOPATHIC STRUCTURAL EXAM: Shows right worse than left mid to lower T-spine paraspinal hypertonic decreased range of motion. Gentle direct inhibitory pressure/rib raising was done with improvement. The patient tolerated well and sacral soft tissue appeared to be somewhat stiff, hypertonic and may be a bit boggy and gentle sacral rocking was done with improvement. The patient tolerated it well. LABS AND DIAGNOSTICS: CBC shows a white count of 8.84, hemoglobin 12.1, and platelets 269. Complete metabolic panel with sodium 138, potassium 3.9, chloride 104, CO2 of 27, BUN 18, and creatinine 1.3. He appears to have a baseline creatinine in this range. Calcium 8.7 and glucose 108. Total bili 0.4 with a direct of 0.1. AST 16, ALT 13, and alkaline phosphatase 84. Total protein 6.9, albumin 3, and lipase 245. CT abdomen and pelvis showed dependent consolidation, right greater than left. Normal heart size. No pericardial effusion. Trace left pleural effusion. Liver with normal morphology. No liver lesions. Patent hepatic vasculature. Biliary tree is showing no intrahepatic or extrahepatic biliary ductal dilation. Normal gallbladder. Pancreas with mild prominence of pancreatic duct without evidence of carmencita mass or calculus. In the region of the ampulla of levator, suspected fatty infiltration of the pancreatic head given slight decrease in density in comparison to the remainder of pancreas without convincing evidence of mass lesion allowing for this single phase examination. Spleen normal. Adrenals normal. Kidneys and ureters showed mild dilation of the ureters without convincing evidence of hydronephrosis. Mild bilateral perinephric fat ulcerations. Scattered subcentimeter hypodensities in the kidneys, too small to characterize, but likely simple cysts. Bladder decompressed with a Rojas catheterization. No evidence of urine leakage at the ureteral anastomosis. Pelvic organs show postsurgical changes and prostatectomy. No fluid collection in the operative bed. Infiltrate along the mesorectal fascia and presacral space. Bowel, apparent wall thickening of the rectum. Gaseous distention of the colon. Normal appendix. No bowel obstruction. Inspissated material on the small bowel, may suggest delayed transit. Peritoneal cavity, small amount of ascites in the right pericolic gutter. No free peritoneal gas. Vasculature showing the aorta and IVC patent and normal in caliber. Lymph nodes showing no enlarged lymph nodes in the abdomen or pelvis. Abdominal wall with small amount of intraperitoneal gas along the left lower wall, likely post-surgical. Musculoskeletal showed degenerative changes of the spine. ASSESSMENT AND PLAN: 1. Ileus. It appears to be a postop ileus related to his prostate cancer surgery. Given that it happened after he was doing well and went home, I suspect the presacral edema causing a bit of neurologic dysfunction of the parasympathetic fibers of his sacral plexus, likely the main mechanistic culprit. Predominantly, this will be managed with bowel rest, supportive care and time; however, in borrowing from osteopathic literature on more conventional bowel obstruction after an abdominal surgery, the patients do often get better with manipulative medicine directed at the sympathetic and parasympathetic nerve fibers. Hence, the OMT as above. 2. Somatic dysfunction, thoracic and sacral regions. OMT as above. The patient tolerated it well. 3. Abnormal pancreas on CT. This will likely as radiology said more of a fatty degenerative change asymmetrically. However, certainly would warrant followup imaging to be safe at an interval in the near, but not immediate future. 4. Hypertension. Follow. Can utilize IV management if needed. 5. Hyperlipidemia. Hold his Crestor for now. 6. Prostate cancer, status post prostatectomy. Continue the Cipro that he was discharged on, obviously IV at this point in time. 7. Deep venous thrombosis prophylaxis, Lovenox. 8. Mildly low albumin, follow his p.o. intake once he is able. 9. Mild anemia, follow. 10. Mild hyperglycemia. Check an A1c for completeness. MTDD
[2017-06-26] MEDS ORDERED: SODIUM CHLORIDE 0.9% 500ML 500 ML IV SCH (18:00)
[2017-06-26 18:22] VITALS: BP 163/82; PULSE 69; TEMP 36.9; O2SAT 96
[2017-06-26 18:26] LABS: PARTIAL THROMBOPLASTIN RATIO 1.1; PROTHROMBIN TIME (PATIENT) 11.2 SECONDS (9.0-12.0)
[2017-06-26] MEDS: CIPROFLOXACIN / D5W 400 MG in PREMIXED IN D5W 200 ML IV SCH (18:44)
[2017-06-26] MEDS ORDERED: NURSING VERBAL MED ORDER ONE (20:00)
[2017-06-26] MEDS: SODIUM CHLORIDE 0.9% 1000ML 1,000 ML IV SCH (20:30)
[2017-06-26] MEDS: ENOXAPARIN 40 MG/0.4 ML SYR SQ SCH (21:00)
--- NOTE | 2017-06-26 22:07 | GENITOURINARY CONSULTATION ---
DATE OF CONSULTATION: 06/26/2017 REASON FOR ADMISSION: Postop ileus. HISTORY OF PRESENTATION: The patient is a 66-year-old male status post radical retropubic prostatectomy [address] Martin. The procedure went uneventfully. Postop day 1, the patient was able to eat, although not much and he was discharged to home. He had passed some gas; however, overnight he became increasingly nauseous with some emesis, was unable to keep down breakfast, had increasing abdominal pain and called, complaining of nausea. I suggested that he come to the hospital, he was evaluated, he had a normal white blood cell count. He denies fever. CAT scan was performed which does show gas in the large intestine, not significantly distended small intestine. The patient did not have any obvious hernias. Had not passed much gas today. PAST MEDICAL HISTORY: Significant for hypertension. MEDICATIONS: Include Cipro, metoprolol, naproxen, Crestor 20 mg p.o. b.i.d. He was on p.r.n. oxycodone and oxybutynin. REVIEW OF SYSTEMS: Please refer to the admitting history and physical for review of systems. PAST SURGICAL HISTORY: Again essentially negative except for the recent robotic prostatectomy and dental extraction. SOCIAL HISTORY: He has never been a smoker. He is and lives with his . ALLERGIES: He has no known drug allergies. PHYSICAL EXAMINATION: HEENT: Remarkable for dry mucous membranes. Unremarkable otherwise. GENERAL: In moderate distress. VITAL SIGNS: Stable. EXTREMITIES: He has no evidence of any pedal edema. Unremarkable without edema. LUNGS: He had no evidence of any respiratory distress. ABDOMEN: Soft with minimal distention, diffusely tender with no significant guarding, rebound or rigidity. SKIN: Without any erythema or rashes. NEUROLOGIC: He is alert and oriented without any focal sensory deficit. The patient did also complain of note, some bladder spasms. No significant fluid collection was seen on CAT scan. Some minimal dilation of the ureters which would potentially be expected, given the surgery. ASSESSMENT AND PLAN: Postop ileus, secondary to the surgery. There was some abnormality of the pancreas which might require further followup. Hypertension, which will be followed by the medical staff. The patient has been placed on Lovenox. We did try to discourage any narcotics use, we will put him on a scheduled Toradol. He received several boluses because of his dehydration and patient was also given Dulcolax suppository and instructed to ambulate as much as possible. He has been made n.p.o. except for sips of fluids and we will reevaluate in the morning.
[2017-06-26 22:45] VITALS: BP 142/84; PULSE 70; TEMP 36.7; O2SAT 99
[2017-06-27] MEDS: ACETAMINOPHEN IV 100 ML IV PRN ×2 (01:44→15:39)
[2017-06-27] MEDS: ONDANSETRON INJ 2 MG/ML 2 ML VIAL IV PRN ×2 (01:44→15:44)
[2017-06-27] MEDS ORDERED: KETOROLAC TROMETHAMINE 15 MG/ML VIAL IM STA (02:12)
[2017-06-27] MEDS ORDERED: KETOROLAC TROMETHAMINE 15 MG/ML VIAL IV STA (02:53)
[2017-06-27] MEDS: SODIUM CHLORIDE 0.9% 1000ML 1,000 ML IV SCH ×2 (06:31→15:39)
[2017-06-27] MEDS: KETOROLAC TROMETHAMINE 15 MG/ML VIAL IV. SCH ×2 (06:32→09:12)
[2017-06-27] MEDS: CIPROFLOXACIN / D5W 400 MG in PREMIXED IN D5W 200 ML IV SCH ×2 (07:28→20:06)
[2017-06-27 07:41] VITALS: BP 142/85; PULSE 70; TEMP 36.6; O2SAT 98
[2017-06-27 08:30] LABS: BUN/CREATININE RATIO 12.6 (10-20); CALCIUM 8.4 mg/dl (8.5-10.1); CREATININE 1.4 mg/dl (0.60-1.40); POTASSIUM 3.8 mmol/L (3.5-5.1)
--- NOTE | 2017-06-27 09:13 | Hospitalist Progress Note ---
Hospitalist Progress Note Date of Service Jun 27, 2017. (Radha Rajan PA-C) Subjective Pt evaluation today including: conversation w/ patient, physical exam, chart review, lab review, review of studies PO Intake: Clears Voiding: bangura catheter in place The patient was seen and examined this morning. Pt is up and walking around the room when I went in to see him. He feels better today compared to yesterday, but still with abdominal distension. He has not had a bowel movement. Pt ate clears for breakfast and "now I'm regretting it". He has been walking quite frequently to help ileus. Constitutional: No fever, No chills, No sweats ENT: No trouble swallowing Respiratory: No cough, No shortness of breath Cardiovascular: No chest pain, No edema Abdomen: + see HPI, No nausea, No vomiting, No diarrhea Musculoskeletal: No joint pain, No swelling Male : + problem reported (bangura catheter in place draining clear yellow urine.) Neurologic: No weakness, No numbness/tingling Endo: No fatigue Skin: No rash, No itch (Radha Rajan PA-C) Objective Vital Signs Date Time Temp Pulse Resp B/P (MAP) Pulse Ox O2 Delivery O2 Flow Rate FiO2 06/27/17 07:41 36.6 70 16 142/85 (104) 98 Room Air 06/27/17 07:20 Room Air 06/27/17 00:15 Room Air 06/26/17 22:45 36.7 70 18 142/84 (103) 99 Room Air 06/26/17 18:22 36.9 69 16 163/82 (109) 96 Room Air 06/26/17 17:06 36.7 68 18 134/82 96 06/26/17 17:00 68 18 134/82 96 Room Air 06/26/17 16:36 69 20 135/93 96 Room Air 06/26/17 16:35 Room Air 06/26/17 13:24 77 06/26/17 12:27 36.7 69 20 127/80 95 Room Air (Radha Rajan PA-C) Physical Exam General Appearance: WD/WN, + mild distress Eyes: PERRL, EOMI ENT: hearing grossly normal, pharynx normal Neck: no adenopathy, no JVD Respiratory/Chest: lungs clear, no respiratory distress, no accessory muscle use Cardiovascular: regular rate, rhythm, no murmur Abdomen: + pertinent finding (+hypoactive bowel sounds, slightly distended, nontender to palpation, bangura catheter in place draining clear yellow urine) Extremities: non-tender, no pedal edema, no calf tenderness Neurologic/Psychiatric: alert, normal mood/affect, oriented x 3 Skin: normal color, warm/dry (Radha Rajan PA-C) Laboratory Results Last 24 Hours Test 06/26/17 11:48 06/26/17 13:09 06/26/17 16:59 06/27/17 07:28 White Blood Count 8.84 K/uL Red Blood Count 4.20 M/uL Hemoglobin 12.1 g/dL Hematocrit 36.8 % Mean Corpuscular Volume 87.6 fL Mean Corpuscular Hemoglobin 28.8 pg Mean Corpuscular Hemoglobin Concent 32.9 g/dl Platelet Count 269 K/uL Mean Platelet Volume 10.2 fL Neutrophils (%) (Auto) 84.1 % Lymphocytes (%) (Auto) 7.7 % Monocytes (%) (Auto) 7.5 % Eosinophils (%) (Auto) 0.1 % Basophils (%) (Auto) 0.1 % Neutrophils # (Auto) 7.44 K/uL Lymphocytes # (Auto) 0.68 K/uL Monocytes # (Auto) 0.66 K/uL Eosinophils # (Auto) 0.01 K/uL Basophils # (Auto) 0.01 K/uL RDW Standard Deviation 41.9 fL RDW Coefficient of Variation 13.0 % Immature Granulocyte % (Auto) 0.5 % Immature Granulocyte # (Auto) 0.04 K/uL Prothrombin Time 11.2 SECONDS Prothromb Time International Ratio 1.0 Activated Partial Thromboplast Time 28.7 SECONDS Partial Thromboplastin Ratio 1.1 Sodium Level 138 mmol/L 139 mmol/L Potassium Level 3.9 mmol/L 3.8 mmol/L Chloride Level 104 mmol/L 107 mmol/L Carbon Dioxide Level 27 mmol/L 27 mmol/L Anion Gap 7.0 mmol/L 18.0 mmol/L 5.0 mmol/L Blood Urea Nitrogen 18 mg/dl 18 mg/dl Creatinine 1.30 mg/dl 1.40 mg/dl Est Creatinine Clear Calc Drug Dose 53.0 ml/min 49.2 ml/min Estimated GFR () 66.4 60.7 Estimated GFR (Non- 57.3 52.4 BUN/Creatinine Ratio 14.1 12.6 Random Glucose 108 mg/dl 88 mg/dl Calcium Level 8.7 mg/dl 8.4 mg/dl Total Bilirubin 0.4 mg/dl Direct Bilirubin 0.1 mg/dl Aspartate Amino Transf (AST/SGOT) 16 U/L Alanine Aminotransferase (ALT/SGPT) 13 U/L Alkaline Phosphatase 84 U/L Total Protein 6.9 gm/dl Albumin 3.0 gm/dl Lipase 245 U/L Bedside Hemoglobin 12.2 g/dl Bedside Hematocrit 36 % Bedside Sodium 138 mEq/L Bedside Potassium 3.9 mEq/L Bedside Chloride 100 mEq/L Bedside Total CO2 25 mEq/l Bedside Blood Urea Nitrogen 18 mg/dl Bedside Creatinine 1.3 mg/dl Bedside Glucose (other) 111 mg/dl Bedside Ionized Calcium (Dalila) 1.14 mmol/l Urine Color YELLOW Urine Appearance CLEAR Urine pH 6.0 Urine Specific [place] 1.023 Urine Protein NEG Urine Glucose (UA) NEG Urine Ketones NEG Urine Occult Blood 2+ Urine Nitrite NEG Urine Bilirubin NEG Urine Urobilinogen NEG Urine Leukocyte Esterase TRACE Urine WBC (Auto) 1-5 /hpf Urine RBC (Auto) 10-30 /hpf Urine Hyaline Casts (Auto) 0 /lpf Urine Epithelial Cells (Auto) 0-5 /lpf Urine Bacteria (Auto) NEG (Radha Rajan PA-C) Assessment and Plan This is a 66 yo M with PMHx of .... who underwent prostatectomy and pelvic lymph node dissection on 06/24 and was discharged home on 06/25. He represented with ileus as seen on CT. Ileus - postop ileus related to prostatectomy. Possible that presacral edema causing a bit of neurologic dysfunction of the parasympathetic fibers of his sacral plexus, - OMT performed at time of admission - Manage with supportive care, advance diet as tolerated - Afebrile, no leukocytosis - Toradol for analgesia - Somatic dysfunction, thoracic and sacral regions - OMT at time of admission - No BM yet, will order dulcolax suppository to aid in BM to help ileus resolve. Prostate cancer, status post prostatectomy - Continue the Cipro 400 mg Q12H that he was discharged on, switched to IV - this would be day #4. Abnormal pancreas on CT - This will likely as radiology said more of a fatty degenerative change asymmetrically. However, certainly would warrant followup imaging to be safe at an interval in the near, but not immediate future. Hypertension - BP has been running in the 160s-140s. - Will resume metoprolol tartrate 25 mg BID as per [employer] meds this morning Hyperlipidemia - Hold his Crestor for now, can resume upon resolution of ileus Hypoalbuminemia, mild - Consider adding protein supplementation once allowed po diet. Pt reports he normally does eat well. Hyperglycemia - A1C in process DVT ppx: teds, scds, lovenox CODE STATUS: FULL CODE Disposition: From home, possible d/c within 24 hours. (Radha Rajan, EBEN) PA Physician Supervision Note: I interviewed and examined the patient. Discussed with Radha Rajan PAC and agree with findings and plan as documented in the note. Any exceptions or clarifications are listed here: None Pt remains uncomfortable, bloated and with eructation. still not feeling hungry or needing to have bowel movement vitals stable, despite listed has having bowel movement did hot have any vitals stable abd with hypoacitve bowel sounds, distended tense but not acute abdomen post op ileus, likely some perirectal inflammation, will try one suppository, continue bowel regimen Documented By: Jerrell Dumont (Jerrell Dumont M.D.)
[2017-06-27] MEDS: METOPROLOL TARTRATE 25 MG TAB PO SCH ×2 (10:36→20:10)
[2017-06-27] MEDS ORDERED: NURSING VERBAL MED ORDER ONE ×2 (11:15→12:00)
--- NOTE | 2017-06-27 11:28 | Progress Note ---
Subjective Date of Service: Jun 27, 2017. Subjective Pt evaluation today including: conversation w/ patient, physical exam, chart review, lab review Pain: minimal pt passing flatus and feels better He note ongoing drainage from opal site Problem List Medical Problems: (1) Back pain Status: Acute (2) Intractable vomiting Status: Acute (3) Syncope Status: Acute Objective Vital Signs Date Time Temp Pulse Resp B/P (MAP) Pulse Ox O2 Delivery O2 Flow Rate FiO2 06/27/17 07:41 36.6 70 16 142/85 (104) 98 Room Air 06/27/17 07:20 Room Air 06/27/17 00:15 Room Air 06/26/17 22:45 36.7 70 18 142/84 (103) 99 Room Air 06/26/17 18:22 36.9 69 16 163/82 (109) 96 Room Air 06/26/17 17:06 36.7 68 18 134/82 96 06/26/17 17:00 68 18 134/82 96 Room Air 06/26/17 16:36 69 20 135/93 96 Room Air 06/26/17 16:35 Room Air 06/26/17 13:24 77 06/26/17 12:27 36.7 69 20 127/80 95 Room Air Laboratory Results Last 24 Hours Test 06/26/17 11:48 06/26/17 13:09 06/26/17 16:59 06/27/17 07:28 White Blood Count 8.84 K/uL Red Blood Count 4.20 M/uL Hemoglobin 12.1 g/dL Hematocrit 36.8 % Mean Corpuscular Volume 87.6 fL Mean Corpuscular Hemoglobin 28.8 pg Mean Corpuscular Hemoglobin Concent 32.9 g/dl Platelet Count 269 K/uL Mean Platelet Volume 10.2 fL Neutrophils (%) (Auto) 84.1 % Lymphocytes (%) (Auto) 7.7 % Monocytes (%) (Auto) 7.5 % Eosinophils (%) (Auto) 0.1 % Basophils (%) (Auto) 0.1 % Neutrophils # (Auto) 7.44 K/uL Lymphocytes # (Auto) 0.68 K/uL Monocytes # (Auto) 0.66 K/uL Eosinophils # (Auto) 0.01 K/uL Basophils # (Auto) 0.01 K/uL RDW Standard Deviation 41.9 fL RDW Coefficient of Variation 13.0 % Immature Granulocyte % (Auto) 0.5 % Immature Granulocyte # (Auto) 0.04 K/uL Prothrombin Time 11.2 SECONDS Prothromb Time International Ratio 1.0 Activated Partial Thromboplast Time 28.7 SECONDS Partial Thromboplastin Ratio 1.1 Sodium Level 138 mmol/L 139 mmol/L Potassium Level 3.9 mmol/L 3.8 mmol/L Chloride Level 104 mmol/L 107 mmol/L Carbon Dioxide Level 27 mmol/L 27 mmol/L Anion Gap 7.0 mmol/L 18.0 mmol/L 5.0 mmol/L Blood Urea Nitrogen 18 mg/dl 18 mg/dl Creatinine 1.30 mg/dl 1.40 mg/dl Est Creatinine Clear Calc Drug Dose 53.0 ml/min 49.2 ml/min Estimated GFR () 66.4 60.7 Estimated GFR (Non- 57.3 52.4 BUN/Creatinine Ratio 14.1 12.6 Random Glucose 108 mg/dl 88 mg/dl Calcium Level 8.7 mg/dl 8.4 mg/dl Total Bilirubin 0.4 mg/dl Direct Bilirubin 0.1 mg/dl Aspartate Amino Transf (AST/SGOT) 16 U/L Alanine Aminotransferase (ALT/SGPT) 13 U/L Alkaline Phosphatase 84 U/L Total Protein 6.9 gm/dl Albumin 3.0 gm/dl Lipase 245 U/L Bedside Hemoglobin 12.2 g/dl Bedside Hematocrit 36 % Bedside Sodium 138 mEq/L Bedside Potassium 3.9 mEq/L Bedside Chloride 100 mEq/L Bedside Total CO2 25 mEq/l Bedside Blood Urea Nitrogen 18 mg/dl Bedside Creatinine 1.3 mg/dl Bedside Glucose (other) 111 mg/dl Bedside Ionized Calcium (Dalila) 1.14 mmol/l Urine Color YELLOW Urine Appearance CLEAR Urine pH 6.0 Urine Specific [place] 1.023 Urine Protein NEG Urine Glucose (UA) NEG Urine Ketones NEG Urine Occult Blood 2+ Urine Nitrite NEG Urine Bilirubin NEG Urine Urobilinogen NEG Urine Leukocyte Esterase TRACE Urine WBC (Auto) 1-5 /hpf Urine RBC (Auto) 10-30 /hpf Urine Hyaline Casts (Auto) 0 /lpf Urine Epithelial Cells (Auto) 0-5 /lpf Urine Bacteria (Auto) NEG Assessment and Plan cont sips of clear fluids . Change toradol to prn
[2017-06-27] MEDS ORDERED: KETOROLAC TROMETHAMINE 15 MG/ML VIAL IV. PRN (12:00)
[2017-06-27] MEDS ORDERED: BISACODYL 10 MG SUPP PR STA (13:25)
[2017-06-27 15:20] VITALS: BP 151/96; PULSE 65; TEMP 36.6; O2SAT 99
[2017-06-27] MEDS: ENOXAPARIN 40 MG/0.4 ML SYR SQ SCH (20:11)
[2017-06-27 23:20] VITALS: BP 133/71; PULSE 70; TEMP 36.6; O2SAT 96
[2017-06-28] MEDS: ACETAMINOPHEN IV 100 ML IV PRN (01:18)
[2017-06-28] MEDS: SODIUM CHLORIDE 0.9% 1000ML 1,000 ML IV SCH ×2 (03:26→12:48)
[2017-06-28 07:36] LABS: ESTIMATED AVERAGE GLUCOSE 126 mg/dl; HA1C FLAG Normal (Normal)
[2017-06-28 08:04] VITALS: BP 158/74; PULSE 76; TEMP 36.8; O2SAT 96
[2017-06-28] MEDS: CIPROFLOXACIN / D5W 400 MG in PREMIXED IN D5W 200 ML IV SCH (08:13)
[2017-06-28] MEDS: METOPROLOL TARTRATE 25 MG TAB PO SCH (09:19)
--- NOTE | 2017-06-28 10:03 | Progress Note ---
Subjective Date of Service: Jun 28, 2017. Subjective Pt evaluation today including: conversation w/ patient, chart review, lab review Voiding: bangura catheter in place (patent, draining clear, yellow urine) 66 yo male with with post-op ileus s/p RALRP. Pt reports BMs last evening. Denies n/v this morning. States he still does not have much of an appetite. Urine is clear, yellow in bangura this morning. Problem List Medical Problems: (1) Back pain Status: Acute (2) Intractable vomiting Status: Acute (3) Syncope Status: Acute Review of Systems Constitutional: No fever, No chills Respiratory: No shortness of breath Cardiac: No chest pain Abdomen: No pain, No nausea, No vomiting Male : No hematuria Heme: No abnormal bleeding/bruising Objective Vital Signs Date Time Temp Pulse Resp B/P (MAP) Pulse Ox O2 Delivery O2 Flow Rate FiO2 06/28/17 08:04 36.8 76 19 158/74 (102) 96 Room Air 06/28/17 00:15 Room Air 06/27/17 23:20 36.6 70 18 133/71 (91) 96 Room Air 06/27/17 16:00 Room Air 06/27/17 15:20 36.6 65 18 151/96 (114) 99 Room Air Physical Exam General Appearance: no apparent distress Eyes: normal inspection ENT: hearing grossly normal Neck: no JVD Respiratory/Chest: no respiratory distress, no accessory muscle use Cardiovascular: no JVD Abdomen: soft, + pertinent finding (abdominal incisions c/d/i) Extremities: normal inspection Neurologic/Psychiatric: alert, normal mood/affect, oriented x 3 Skin: normal color Assessment and Plan POD #4 s/p RALRP AFVSS. Post-op ileus resolving. Will slowly advance to mechanical soft diet for lunch as tolerated. Possible d/c home later this afternoon vs tomorrow if tolerating mechanical soft diet. Will plan to leave bangura catheter in place until Wednesday, 07-07 at 10:45am. F/u with Dr. Martin as scheduled. Discharge planning: home
--- NOTE | 2017-06-28 10:05 | Discharge Instructions ---
Discharge Instructions Date of Service Jun 28, 2017. Admission Reason for Admission: ILEUS Discharge Discharge Diagnosis / Problem: Ileus Discharge Goals Goal(s): Decrease discomfort, Improve function, Increase independence, Improve disease control Activity Recommendations Activity Limitations: per Instructions/Follow-up section Lifting Limitations: no more than 25 pounds, gradually increase as tolerated Exercise/Sports Limitations: rest today, gradually increase as tolerated May Resume Sexual Activity: after follow-up appointment (with urology) Shower/Bathe: no limitations Driving or Machine Use: no limitations . Instructions / Follow-Up Instructions / Follow-Up You were admitted to [facility] with abdominal pain and distension and diagnosed with abdominal ileus. This was likely secondary to your recent prostatectomy surgery on 06/24. During your stay here you were treated with supportive care, antibiotics (Cipro ) was continued, and dulcolax suppository to help resolve ileus. You tolerated a diet and your pain was improved prior to discharge. - Continue the bangura catheter- Urology plans to see you for follow up as listed below Medications: - Continue taking Cipro 500 mg twice daily as prescribed and finish all tablets. This will complete a 12 day course because you were continued on Cipro IV while in the hospital. - Take Tylenol (acetaminophen) 1000 mg three times daily for the next 2 days to alleviate pain. Do not take more than 4g total in a 24 hour period. Avoid narcotics as this can worsen bowel motility. - Zofran has been provided for nausea. You may take a total of 8 mg at one time if extremely nauseous. Do not take more than 24 mg within a 24 hour period. Appointments: Follow up with your Primary Care Provider within 1 week. Follow up with Urology on Jul 07 at 10:45 AM for bangura catheter removal with nursing. Follow up with Urology, Dr. Martin on Jul 13 at 9:10 AM. Current Hospital Diet Patient's current hospital diet: Regular Diet Discharge Diet Recommended Diet: Regular Diet Pending Studies Studies pending at discharge: no Laboratory Results Hemoglobin A1c Test 06/26/17 11:48 Range/Units Estimated Average Glucose 126 mg/dl Hemoglobin A1c 6.0 H 4.5-5.6 % Lipid Panel Test 06/09/17 15:40 Range/Units Triglycerides Level 94 0-150 mg/dl Cholesterol Level 124 0-200 mg/dl HDL Cholesterol 53 mg/dl Cholesterol/HDL Ratio 2.3 LDL Cholesterol, Calculated 52 mg/dl Medical Emergencies . Who to Call and When: Medical Emergencies: If at any time you feel your situation is an emergency, please call 911 immediately. . Non-Emergent Contact Non-Emergency issues call your: Primary Care Provider, Urologist Call Non-Emergent contact if: you have a fever, your pain is not controlled, your pain is worsening, your pain is unusual for you, your pain is concerning you, you have any medication questions . Past History Medical & Surgical History: (1) Prostate cancer (2) Ileus (3) HTN (hypertension) (4) Intractable vomiting . "Provider Documentation" section prepared by Dona Rajan. . VTE Core Measure Inpt VTE Proph given/why not?: Enoxaparin (Lovenox)BLAZE, TMachelleEMelchor Driver, SCD's
--- NOTE | 2017-06-28 13:29 | Discharge Summary ---
Discharge Summary Date of Service Jun 28, 2017. (Radha Rajan PA-C) Discharge Summary Admission Date: Jun 26, 2017 at 15:22 Discharge Date: Jun 28, 2017 Discharge Disposition: Home Principal Diagnosis: Ileus, postoperative from prostatectomy Problems/Secondary Diagnoses: HTN, HLD, hypoalbuminemia, hyperglycemia and prostate cancer who underwent prostatectomy and pelvic lymph node dissection on 06/24 Procedures: ABD/PELVIS IV CONTRAST ONLY CLINICAL HISTORY: 66 years-old Male presenting with Pt c/o N V, diffuse abd pain, history of prostatectomy 2 days ago. TECHNIQUE: Multidetector CT of the abdomen and pelvis was performed after the administration of intravenous contrast. IV contrast: 93 mL of Optiray 320. A dose lowering technique was used consistent with the principles of ALARA (as low as reasonably achievable). COMPARISON: Nuclear medicine bone scan from 05/11/2017 and prostate MR from 02/25/2017. CT DOSE (mGy.cm): The estimated cumulative dose is 321.66 mGy.cm. FINDINGS: Platform Builder topogram: Unremarkable. Lung bases: Dependent consolidation, right greater than left. Normal heart size. No pericardial effusion. Trace left effusion. Liver: Normal morphology. No liver lesion. Patent hepatic vasculature. Biliary: No intrahepatic or extrahepatic biliary ductal dilatation. Normal gallbladder. Pancreas: Mild prominence of the pancreatic duct without evidence of a carmencita mass or calculus in the region of the ampulla of Vater. Suspected fatty infiltration of the pancreatic head given slight decrease density in comparison to the remainder the pancreas without convincing evidence of a mass lesion allowing for this single phase examination. Spleen: Normal. Adrenal glands: Normal. Kidneys and ureters: Mild dilatation of the ureters without convincing evidence of hydronephrosis. Mild bilateral perinephric fat ulceration scattered subcentimeter hypodensities in the kidneys to small to characterize but likely simple cysts. Bladder: Decompressed with a Bangura catheter. No evidence of urine leakage at the ureteral anastomosis. Pelvic organs: Postsurgical changes of prostatectomy. No fluid collection in the operative bed. Infiltration along the mesorectal fascia and presacral space. Bowel: Apparent wall thickening of the rectum. Gaseous distention of colon. Normal appendix. No bowel obstruction. Inspissated material in the small bowel may suggest delayed transit. Peritoneal cavity: Small amount of ascites in the right paracolic gutter. No free peritoneal gas. Vasculature: Aorta and IVC patent and normal in caliber. Lymph nodes: No enlarged lymph nodes in the abdomen or pelvis. Abdominal wall: Small amount of extraperitoneal gas along the left lower abdominal wall, likely postsurgical change. Musculoskeletal: Degenerative changes of the spine. IMPRESSION: 1. Postsurgical changes of prostatectomy with expected extraperitoneal gas. Dilatation of the bilateral ureters may be postsurgical or chronic secondary to bladder outlet obstruction. No evidence of dilated renal collecting systems to suggest obstruction. 2. Infiltration along the mesorectal fascia and presacral space may be postsurgical or indicate post radiation change. 3. Apparent wall thickening of the rectum. This may be due to underdistention, although if present this could represent post radiation change or inflammation. Consideration for direct visualization if clinically indicated. This was better demonstrated on dedicated rectal MR. 4. Dependent consolidation, right greater than left, likely atelectasis. 5. Prominence of the pancreatic duct, which is of uncertain etiology. No convincing evidence of a focal pancreatic head mass within limitations of this single phase examination. Electronically signed by: Dio Mejia M.D. 06/26/2017 2:26 PM Dictated Date/Time: 06/26/2017 2:14 PM The status of this report is Signed. Consultations: Urology (Radha Rajan, EBEN) Medication Reconciliation New Medications: Ondansetron Hcl (Zofran) 4 Mg Tab 1 TAB PO Q4H PRN for Nausea for 15 Days, #60 TAB 0 Refills Continued Medications: Ciprofloxacin Hcl (Cipro) 500 Mg Tab 500 MG PO BID for 10 Days, #20 TAB Docusate Sodium (Docusate Sodium) 100 Mg Cap 100 MG PO BID for Constipation for 30 Days, #60 CAP Metoprolol Tartrate (Lopressor) (Lopressor) 25 Mg Tab 25 MG PO BID, TAB Naproxen (Aleve) 220 Mg Tab 220 MG PO PRN, TAB Oxybutynin Chloride (Oxybutynin Chloride) 5 Mg Tab 5 MG PO Q8 PRN for BLADDER SPASMS for 10 Days, #30 TAB Rosuvastatin Calcium (Crestor) 20 Mg Tab 20 MG PO QPM, TAB Discontinued Medications: Oxycodone/Acetaminophen 7.5MG/325MG (Endocet 7.5MG/325MG) 1 Tab Tab 1-2 TAB PO Q4H PRN for severe pain (pain scale 7-10), #20 TAB Discharge Exam The patient was seen and examined this morning. Pt reports feeling better today compared to yesterday, he has had numerous bowel movements since having the dulcolax suppository yesterday. Abdominal distension has significantly improved. He is not nauseated and hasn't vomitted. He ate some breakfast and tolerated lunch without difficulty. Review of Systems: Constitutional: No fever, No chills, No sweats Eyes: No eye pain, No diplopia ENT: No trouble swallowing Respiratory: No cough, No shortness of breath Cardiovascular: No chest pain, No edema, No palpitations Abdomen: No diarrhea, No constipation Musculoskeletal: No joint pain, No swelling, No calf pain Genitourinary - Male: + problem reported (bangura catheter in place), No hematuria, No dysuria Neurologic: No numbness/tingling Endocrine: No fatigue Integumentary: No rash, No itch (Radha Rajan, EBEN) Hospital Course HISTORY OF PRESENT ILLNESS: The patient is a very pleasant 66-year-old male who just had a prostatectomy earlier this week, was actually just discharged yesterday, was feeling okay, was eating reasonably, but then unfortunately by the last night, he was basically just being able to eat pretty much clears to a clear liquid diet, may be a full liquid diet and was not sitting that well and then today, he has had nausea and vomiting and pain and his belly hurts pretty much any time he moves around. He is not able to eat or drink and so, he came to the ER for further evaluation. Here, he was found to have findings consistent with an ileus. Urology was consulted and we were asked to assist with admission. He denies any hematemesis. Denies diarrhea and notes that actually having bowel movements, which probably make it feel good. Describes the pain, almost like a bad gas pain, but it will not really go away. He has no fevers, chills, or sweats. No other complaints. PHYSICAL EXAMINATION: VITAL SIGNS: Temperature 36.7, pulse 69, respiratory rate 20, blood pressure 127/80, and 95% on room air. GENERAL: He is awake, alert, and oriented x3, pleasant, but lying very still. Does not appear in distress, but definitely appears scared to move. HEENT: Normocephalic and atraumatic. Mucous membranes are moist. CARDIOVASCULAR: Regular without rubs, murmurs, or gallops. LUNGS: Clear to auscultation bilaterally. No rales, rhonchi, or wheezes with good effort. ABDOMEN: Soft. Moderately distended. Diffusely tender without guarding, rebound or rigidity. No masses or organomegaly. EXTREMITIES: Without cyanosis, clubbing or edema. SKIN: Shows no rashes. No pallor or icterus. NEUROLOGIC: Shows cranial nerves II-XII to be grossly intact. Gross motor and sensory are intact. Mental state shows good recent and remote recall. Normal mood and affect. Good judgment and insight. MUSCULOSKELETAL/OSTEOPATHIC STRUCTURAL EXAM: Shows right worse than left mid to lower T-spine paraspinal hypertonic decreased range of motion. Gentle direct inhibitory pressure/rib raising was done with improvement. The patient tolerated well and sacral soft tissue appeared to be somewhat stiff, hypertonic and may be a bit boggy and gentle sacral rocking was done with improvement. The patient tolerated it well. Hospital Course: This is a 66 yo M with PMHx of HTN, HLD, hypoalbuminemia, hyperglycemia and prostate cancer who underwent prostatectomy and pelvic lymph node dissection on 06/24 and was discharged home on 06/25. He represented with ileus as seen on CT. Ileus, postoperative from prostatectomy - Improved today, had multiple bowel movements with dulcolax suppository yesterday. Distension has significantly improved. Tolerating bland diet. - postop ileus related to prostatectomy. Possible that presacral edema causing a bit of neurologic dysfunction of the parasympathetic fibers of his sacral plexus, OMT performed at time of admission - Afebrile, no leukocytosis - Toradol for analgesia - pt has not required this for pain, he has been taking acetaminophen with adequate relief. - Somatic dysfunction, thoracic and sacral regions - OMT at time of admission Prostate cancer, status post prostatectomy - Continue the Cipro 400 mg Q12H that he was discharged on, switched to IV - this would be day #5, can continue his tablets from home. This will complete a 12 day course of antibiotic therapy. This was discussed with Kemi HUITRON. - Follow up with Urology as already scheduled. Abnormal pancreas on CT - This will likely as radiology said more of a fatty degenerative change asymmetrically. However, certainly would warrant followup imaging to be safe at an interval in the near, but not immediate future. Hypertension - BP remained in the 150s but was improved after resumption of metoprolol tartrate 25 mg BID Hyperlipidemia - Hold his Crestor for now, can resume upon resolution of ileus Hypoalbuminemia, mild - Consider adding protein supplementation once allowed po diet. Pt reports he normally does eat well. - Follow with outpatient provider Hyperglycemia Pre-diabetes - A1C=6.0, discussion regarding improved diet was held with the patient prior to discharge, and exercise as his health allows. DVT ppx: teds, scds, lovenox CODE STATUS: FULL CODE Disposition: From home, discharge today Total Time Spent: Greater than 30 minutes This includes examination of the patient, discharge planning, medication reconciliation, and communication with other providers. (Radha Rajan PA-C) KIESHA Physician Supervision Note: I interviewed and examined the patient. Discussed with Radha Rajan PAC and agree with findings and plan as documented in the note. Any exceptions or clarifications are listed here: None Patient is here with postoperative ileus after a prostatectomy he had good results with bowel movements on 06/28 he is able tolerate diet his pain control is acceptable he is agreeable to going home His , Lesley, had many questions which were answered by both myself and my physician's assistant oceanographer. His vital signs are stable His abdomen is slightly distended sounds are present to hyperactive is soft with voluntary guarding Postoperative ileus with abdominal discomfort resolved with bowel movements with persistent risk given continued pain use at home, patient given instructions on good bowel regimen given when necessary prescription for antiemetic Documented By: Jerrell Dumont (Jerrell Dumont M.D.) Discharge Instructions Please refer to the electronic Patient Visit Report (Discharge Instructions) for additional information. (Radha Rajan PA-C) Follow-Up Follow up with your Primary Care Provider within 1 week. Follow up with Urology on Wednesday, Jul 07 at 10:45 AM for bangura catheter removal with nursing. Follow up with Urology, Dr. Martin on Jul 13 at 9:10 AM. (Radha Rajan PA-C)
[2017-06-28 14:50] VITALS: BP 136/82; PULSE 68; TEMP 36.7; O2SAT 96
[2017-06-28] MEDS ORDERED: ONDA4TAB65 PO (16:02)
[2017-06-28 17:29] VITALS: BP 136/82; PULSE 68; TEMP 36.7; O2SAT 96
== END 2017-06-28 17:58 | disposition home or self-care (01) | DRG 351 ==
LOC: C.EDB 12:19 → C.MSN 15:22 → ENRESERV 16:13
PROVIDERS: ADMIT Family Medicine; ATTEND Internal Medicine
PROC: 0YQ64ZZ Repair Left Inguinal Region, Percutaneous Endoscopic Approach (ICD-10-PCS; principal; 2017-06-24)
PROC: 07BC4ZX Excision of Pelvis Lymphatic, Percutaneous Endoscopic Approach, Diagnostic (ICD-10-PCS; principal; 2017-06-24)
PROC: 0VT34ZZ Resection of Bilateral Seminal Vesicles, Percutaneous Endoscopic Approach (ICD-10-PCS; principal; 2017-06-24)
PROC: 8E0W4CZ Robotic Assisted Procedure of Trunk Region, Percutaneous Endoscopic Approach (ICD-10-PCS; principal; 2017-06-24)
PROC: 0TU Urinary System, Supplement (ICD-10-PCS; principal; 2017-06-24)
PROC: 0VT04ZZ Resection of Prostate, Percutaneous Endoscopic Approach (ICD-10-PCS; principal; 2017-06-24)
DX: K91.89 Other postprocedural complications and disorders of digestive system (principal); K56.7 Ileus, unspecified; C61 Malignant neoplasm of prostate; Z90.79 Acquired absence of other genital organ(s); M99.02 Segmental and somatic dysfunction of thoracic region; M99.04 Segmental and somatic dysfunction of sacral region; R93.3 Abnormal findings on diagnostic imaging of other parts of digestive tract; I10 Essential (primary) hypertension; E78.5 Hyperlipidemia, unspecified; E88.09 Other disorders of plasma-protein metabolism, not elsewhere classified; D64.9 Anemia, unspecified; R73.9 Hyperglycemia, unspecified; Z79.2 Long term (current) use of antibiotics; Z79.899 Other long term (current) drug therapy; Z82.49 Family history of ischemic heart disease and other diseases of the circulatory system; I65.29 Occlusion and stenosis of unspecified carotid artery; K40.90 Unilateral inguinal hernia, without obstruction or gangrene, not specified as recurrent

== ENCOUNTER 2017-07-02 14:05 | Emergency (ER) | payer BC, OTHER ==
[~2017-07-02] VITALS: Ht 170.2 cm; Wt 72.4 kg
[~2017-07-02 14:05] MED LIST changes: +DUTA0.5C PO; +ONDA4TAB65 PO
[2017-07-02 14:08] VITALS: TEMP 36.6; Ht 170.2 cm; Wt 72.4 kg
[2017-07-02 15:26] LABS: URINE APPEARANCE CLEAR (CLEAR); URINE BILIRUBIN NEG (NEG); URINE COLOR ORANGE; URINE NITRITE NEG (NEG); URINE SPECIFIC GRAVITY 1.007 (1.000-1.030); UROBILINOGEN NEG (NEG)
[2017-07-02 15:28] LABS: MANUAL MICROSCOPIC REQUIRED? NO; REVIEW REQ? NO
[2017-07-02 15:53] VITALS: BP 132/80; PULSE 63; O2SAT 100
--- NOTE | 2017-07-02 16:18 | EMERGENCY ROOM VISIT NOTE ---
History Report prepared by Divine: Dimitri Cardoza Under the Supervision of: Dr. Jerrell Christy M.D. First contact with patient: 14:12 Chief Complaint: CATHETER REPLACEMENT Stated Complaint: CATH IS BLOCKED History of Present Illness The patient is a 66 year old male who presents to the Emergency Room with complaints of persistent catheter blockage that started 3 hours ago. He says that he had a Rojas catheter inserted following a prostatectomy 7 days ago, which was performed by Dr. Martin. The patient notes that he had been doing okay other than swollen testicles since the surgery, but he has not had any output from the catheter for the past 3 hours. He has been having associated pressure with the blockage. The patient denies any nausea or fevers, and notes that there was no blood in the urine before the blockage started. Source of History: patient, spouse/significant other Onset: 3 hours ago Position: other (global - catheter blockage) Quality: other (not draining ) Timing: other (persistent) Associated Symptoms: No nausea, No vomiting Note: Associated symptoms: Swollen testicles since surgery. Denies blood in urine. Review of Systems See HPI for pertinent positives & negatives. A total of 10 systems reviewed and were otherwise negative. Past Medical & Surgical Medical Problems: (1) HTN (hypertension) (2) Hypertensive urgency (3) Ileus (4) Prostate cancer Family History FH: heart disease Social History Smoking Status: Never Smoker Drug Use: none Marital Status: Housing Status: lives with family Occupation Status: employed Current/Historical Medications Scheduled Ciprofloxacin Hcl (Cipro), 500 MG PO BID Docusate Sodium (Docusate Sodium), 100 MG PO BID Metoprolol Tartrate (Lopressor) (Lopressor), 25 MG PO BID Naproxen (Aleve), 220 MG PO PRN Rosuvastatin Calcium (Crestor), 20 MG PO QPM Scheduled PRN Ondansetron Hcl (Zofran), 1 TAB PO Q4H PRN for Nausea Oxybutynin Chloride (Oxybutynin Chloride), 5 MG PO Q8 PRN for BLADDER SPASMS Allergies Coded Allergies: No Known Allergies (Unverified , 07/02/17) Physical Exam Vital Signs Date Time Temp Pulse Resp B/P (MAP) Pulse Ox O2 Delivery O2 Flow Rate FiO2 07/02/17 15:53 63 15 132/80 100 07/02/17 15:46 63 15 132/80 100 Room Air 07/02/17 14:40 61 15 136/88 99 Room Air 07/02/17 14:08 36.6 69 20 149/91 98 Room Air Physical Exam Constitutional: Vital signs reviewed. Eyes: Pupils are equal round reactive to light. Conjunctiva are noninjected. ENT: Pharynx is clear without erythema or exudate. Mucous membranes are moist. Neck supple without meningeal signs. Respiratory: Clear to auscultation bilaterally. Breath sounds are equal bilaterally. Cardiovascular: Regular rate and rhythm. No rubs or gallops. GI: Soft, nondistended and nontender. Bowel sounds are present. : Rojas catheter in place. Yellow urine without blood in leg bag. Scrotum is swollen without tenderness or cellulitis. Musculoskeletal: No peripheral edema. No lower extremity tenderness. Integumentary: No cyanosis. Neurological: The patient is awake and alert. No focal deficits. Psychiatric: Normal affect. Medical Decision & Procedures Laboratory Results Test 07/02/17 15:10 Urine Color ORANGE Urine Appearance CLEAR (CLEAR) Urine pH 7.0 (4.5-7.5) Urine Specific [place] 1.007 (1.000-1.030) Urine Protein 1+ (NEG) Urine Glucose (UA) NEG (NEG) Urine Ketones NEG (NEG) Urine Occult Blood 3+ (NEG) Urine Nitrite NEG (NEG) Urine Bilirubin NEG (NEG) Urine Urobilinogen NEG (NEG) Urine Leukocyte Esterase NEG (NEG) Urine WBC (Auto) 1-5 /hpf (0-5) Urine RBC (Auto) >30 /hpf (0-4) Urine Hyaline Casts (Auto) 1-5 /lpf (0-5) Urine Epithelial Cells (Auto) 5-10 /lpf (0-5) Urine Bacteria (Auto) NEG (NEG) Laboratory results as reviewed by me. ED Course 1414: The patient was evaluated in room B5. A complete history and physical exam was performed. 1450: I reevaluated the patient. The nurse irrigated the Rojas and got out some large clots. The patient feels much better now. 1558: Dr. Martin of [facility] urology was informed about the patient. He said to leave the catheter in. 1610: I reevaluated the patient and discussed the urine tests. The patient verbally expressed understanding and agreement with the treatment plan. The patient will be discharged. Medical Decision This is a 66-year-old male who presents with Rojas catheter dysfunction. I did perform a limited focused review of portions of the patient's old chart on the electronic medical record. The patient was admitted June 26 for ileus. I did evaluate the patient as noted above. The patient's Rojas catheter was irrigated. Some clots were obtained and the patient felt much better. He was able to urinate here and we checked a urinalysis which did not show signs of infection. Dr. Martin was informed of his care and he was discharged home. Medication Reconcilliation Current Medication List: was personally reviewed by me Blood Pressure Screening Patient's blood pressure: Elevated blood pressure Consults Time Called: [phone] Consulting Physician: [facility] Returned Call: [phone] Dr. [facility] of [facility] was informed about the patient. He said to leave the catheter in. Impression Primary Impression: Obstruction of Rojas catheter Scribe Attestation The scribe's documentation has been prepared under my direct and personally reviewed by me in its entirety. I confirm that the note above accurately reflects all work, treatment, procedures, and medical decision making performed by me. Departure Information Dispostion Home / Self-Care Referrals No Doctor, Assigned (PCP) Patient Instructions [facility], My [facility] Additional Instructions You have been examined and treated today on an emergency basis only. This is not a substitute for, or an effort to provide, complete comprehensive medical care. It is impossible to recognize and treat all injuries or illnesses in a single emergency department visit. It is therefore important that you follow up closely with your physician. Call as soon as possible for an appointment. Return for worsening symptoms or if you develop fever, vomiting, significant bleeding from her catheter, decreased urine output, abdominal pain or any other concerning symptoms. Problem Qualifiers Primary Impression: Obstruction of Rojas catheter Encounter type: initial encounter Qualified Codes: T83.091A - Other mechanical complication of indwelling urethral catheter, initial encounter
== END 2017-07-02 15:50 | disposition home or self-care (01) ==
LOC: C.EDB 14:06
DX: T83.091A Other mechanical complication of indwelling urethral catheter, initial encounter (principal); Y84.6 Urinary catheterization as the cause of abnormal reaction of the patient, or of later complication, without mention of misadventure at the time of the procedure; I10 Essential (primary) hypertension; Z85.46 Personal history of malignant neoplasm of prostate; Z82.49 Family history of ischemic heart disease and other diseases of the circulatory system; Z79.899 Other long term (current) drug therapy

== ENCOUNTER → 2017-08-06 | Outpatient (CLI) | payer BC ==
[~2017-08-06] MED LIST changes: -DUTA0.5C PO; -MISCTAB29 PO; -OXYC7.5T62 PO; -SELE200C3 PO; -VITA400C3 PO
[2017-08-06 14:16] LABS: BLOOD UREA NITROGEN 20 mg/dl (7-18); BUN/CREATININE RATIO 15.5 (10-20)
[2017-08-06 14:20] LABS: PROSTATE SPECIFIC ANTIGEN 0.014 ng/ml (0.000-4.000)
== END | disposition home or self-care (01) ==
LOC: C.LABBC 10:19
PROVIDERS: ATTEND Urology
DX: N41.9 Inflammatory disease of prostate, unspecified (principal)

== ENCOUNTER → 2017-10-21 | Outpatient (CLI) | payer BC ==
[2017-10-21 18:44] LABS: BLOOD UREA NITROGEN 29 mg/dl (7-18); BUN/CREATININE RATIO 19.9 (10-20); CREATININE 1.47 mg/dl (0.60-1.40)
[2017-10-21 18:49] LABS: PROSTATE SPECIFIC ANTIGEN < 0.010 ng/ml (0.000-4.000)
--- NOTE | 2017-10-29 10:29 | CODING QUERY MEDICAL NECESSITY ---
SUPPORTING DIAGNOSIS NEEDED Dr. Martin, A supporting diagnosis is required for the test/procedure performed on this patient in order for us to be reimbursed by the patient's insurance. Please provide a supporting diagnosis for the following test/procedure listed below next to the test name along with your signature. *If there is no additional diagnosis for this patient that would support the following test/procedure please document that below next to the test/procedure. Test(s)/Procedure(s) that require a supporting diagnosis: * 49915 PSA DIAGNOSIS: DATE OF SERVICE: 10/21/17 Provider Signature: Date: Thank you Dada Mcclellan [facility] Information Management Once completed, please kindly fax back to [phone] For questions please call [phone]
== END | disposition home or self-care (01) ==
LOC: C.LAB 17:02
PROVIDERS: ATTEND Urology
DX: N52.9 Male erectile dysfunction, unspecified (principal)

== ENCOUNTER → 2017-12-08 | Outpatient (CLI) | payer BC ==
[2017-12-08 13:59] LABS: ALBUMIN 3.6 gm/dl (3.4-5.0); ALT/SGPT 22 U/L (12-78); AST/SGOT 18 U/L (15-37); BLOOD UREA NITROGEN 26 mg/dl (7-18); CALCIUM 9.2 mg/dl (8.5-10.1); CARBON DIOXIDE 28 mmol/L (21-32); CREATININE 1.37 mg/dl (0.60-1.40); GLUCOSE 86 mg/dl (70-99); LIPASE 415 U/L (73-393); POTASSIUM 4.7 mmol/L (3.5-5.1); SODIUM 137 mmol/L (136-145)
[2017-12-08 14:01] LABS: ALKALINE PHOSPHATASE 80 U/L (45-117); TOTAL PROTEIN 7.6 gm/dl (6.4-8.2)
== END | disposition home or self-care (01) ==
LOC: C.LAB 10:27
PROVIDERS: ATTEND Physician Assistant Medical
DX: Q45.3 Other congenital malformations of pancreas and pancreatic duct (principal); R73.9 Hyperglycemia, unspecified

== ENCOUNTER → 2017-12-13 | Outpatient (CLI) | payer BC ==
[~2017-12-13] MED LIST changes: +OPTIRAY 320 IV PRN
--- NOTE | 2017-12-13 11:38 | DIAGNOSTIC IMAGING REPORT ---
ABDOMEN AND PELVIS CT, PANCREATIC PROTOCOL HISTORY: ABDOMEN AND PELVIS CT WITH IV AND ORAL CONTRAST CT DOSE: HISTORY: Pancreatic duct enlargement. Follow-up. TECHNIQUE: Multiaxial CT images of the abdomen and pelvis were performed both before and after the use of intravenous and oral contrast to evaluate the pancreas. A dose lowering technique was utilized adhering to the principles of ALARA. COMPARISON STUDY: Abdomen and pelvis CT 06/26/2017. FINDINGS: A 3 mm subpleural nodule within the lingula. This is new from the prior study and is of doubtful clinical significance. No pneumoperitoneum. No pneumatosis no suspicious lytic or blastic osseous lesions. Prior midline incision. The liver, gallbladder, spleen, and adrenal glands are unremarkable. Moderate to severe bilateral cortical renal thinning/scarring. This remains unchanged. No hydronephrosis. A few bilateral renal hypodense lesions are again noted. These favor cysts. No retroperitoneal lymphadenopathy. The pancreas enhances normally. No pancreatic masses identified. There is slight prominence of the distal main pancreatic duct measuring up to 3.7 mm. This is similar to the prior study. Normal bladder. Prior prostatectomy. No pelvic lymphadenopathy. No bowel wall thickening or obstruction. Normal appendix. IMPRESSION: 1. Stable mild prominence of the distal main pancreatic duct measuring up to 3.7 mm. No pancreatic masses identified by CT. 2. Status post prostatectomy. 3. Additional findings as described above. Electronically signed by: Ej Cazares M.D. 12/13/2017 11:37 AM Dictated Date/Time: 12/13/2017 11:06 AM
== END | disposition home or self-care (01) ==
LOC: C.CTS 10:37
PROVIDERS: ATTEND Physician Assistant Medical
DX: C61 Malignant neoplasm of prostate (principal); K86.89 Other specified diseases of pancreas; Q45.3 Other congenital malformations of pancreas and pancreatic duct; Z90.79 Acquired absence of other genital organ(s)

== ENCOUNTER → 2018-02-15 | Outpatient (CLI) | payer BC ==
[~2018-02-15] MED LIST changes: +GADAVIST IV PRN; -OPTIRAY 320 IV PRN
--- NOTE | 2018-02-15 09:02 | DIAGNOSTIC IMAGING REPORT ---
ABDOMINAL MRI WITH AND WITHOUT INTRAVENOUS CONTRAST HISTORY: Diarrhea. Vomiting. EVAL FOR MASS IN PANCREATIC DUCT,ELEVATED LABS TECHNIQUE: Multiplanar multisequence MRI of the abdomen was performed both before and after the intravenous administration of 7 cc of Gadavist. COMPARISON STUDY: Abdomen and pelvis CT 12/13/2017. FINDINGS: The lung bases are clear. The liver, gallbladder, spleen, and adrenal glands are unremarkable. Moderate to severe bilateral cortical renal scarring. A few bilateral renal T2 hyperintense lesions which do not enhance. These are consistent with cysts. The largest on the right measures 11 mm. No hydronephrosis. The visualized loops of bowel show no wall thickening or obstruction. No significant change in the mild focal dilatation of the distal main pancreatic duct at the pancreatic head. This measures up to 4 mm in diameter. No filling defects seen within the main pancreatic duct. The common bile duct is normal in course and caliber. There are no filling defects within the common bile duct. The pancreas enhances normally. No pancreatic masses. IMPRESSION: 1. Stable mild prominence of the distal main pancreatic duct measuring up to 4 mm. No pancreatic masses identified. 2. Moderate to severe bilateral cortical renal scarring, unchanged. Electronically signed by: Ej Cazares M.D. 02/15/2018 9:01 AM Dictated Date/Time: 02/15/2018 8:51 AM
== END | disposition home or self-care (01) ==
LOC: C.MRI 07:30
PROVIDERS: ATTEND Internal Medicine Gastroenterology
DX: R74.8 Abnormal levels of other serum enzymes (principal)

== ENCOUNTER → 2018-03-13 | Outpatient (CLI) | payer BC ==
[~2018-03-13] MED LIST changes: -GADAVIST IV PRN
[2018-03-13 09:18] LABS: BLOOD UREA NITROGEN 27 mg/dl (7-18); CREATININE 1.45 mg/dl (0.60-1.40)
== END | disposition home or self-care (01) ==
LOC: C.LAB 08:03
PROVIDERS: ATTEND Urology
DX: N52.9 Male erectile dysfunction, unspecified (principal)